=== PATIENT | female | born 1945 ===

== ENCOUNTER 2019-07-29 21:27 | Inpatient (IN) | payer OTHER ==
[2019-07-29] MEDS ORDERED: CEFEPIME 2 GM VIAL ONE (22:42)
[2019-07-29] MEDS ORDERED: ACETAMINOPHEN 650MG/RECT SUPP PR ONE (22:43)
[2019-07-29] MEDS ORDERED: NA CHLORIDE 0.9% 500 ML ONE (22:43)
[2019-07-29] MEDS ORDERED: NA CHLORIDE 0.9% 100 ML IV ONE (22:43)
[2019-07-29] MEDS ORDERED: NA CHLORIDE 0.9% 1,000 ML ONE (22:43)
[2019-07-29 23:13] LABS: Protime INR 1.94
[2019-07-29 23:17] LABS: Absolute Lymphocytes (CBC) 1.6 K/uL (0.7-4.9); Basophils % 0.9 % (0-1.3); Hematocrit 40.7 % (36.0-45.0); Lymphocytes % 13.7 % (15.3-44.8); MPV 9.9 fL (7.6-11.3); RBC Red Blood Cell Count 4.62 M/uL (3.86-4.86)
[2019-07-29 23:40] LABS: Urine Blood 2+ (NEG); Urine Glucose NEGATIVE (NEG); Urine Protein NEGATIVE (NEG); Urine pH 5.5 (5.0-7.0)
[2019-07-29 23:42] LABS: Albumin 3.2 g/dL (3.4-5.0); Bilirubin Direct 0.5 mg/dL (0-0.2); Bilirubin Total 1.3 mg/dL (0.2-1.0); Magnesium 1.7 mg/dL (1.8-2.4); Potassium 3.9 mmol/L (3.5-5.1); Protein, Total 7.9 g/dL (6.4-8.2); Thyroid Stimulating Hormone 0.852 uIU/mL (0.360-3.740); Troponin (Emerg Dept Use Only) 0.07 ng/mL (0.0-0.045)
--- NOTE | 2019-07-29 23:55 | ER ---
Nurse's Notes [facility] Name: Vaishali Leary Age: 73 yrs Sex: Female : 1945 Arrival Date: 07/29/2019 Time: 21:30 Bed 7 Private MD: Diagnosis: Altered mental status, unspecified;Fever, unspecified;Abdominal tenderness;Unspecified kidney failure;Retention of urine-1400cc;Hypomagnesemia Presentation: 07/29 21:31 Presenting complaint: EMS states: "[facility] called us for the pt having trimmers and jd3 altered mental status. she does having a history of dementia and and mood disorder due to history of delirium. she has been there since 07-15-19. the staff says she is normally A\\T\\O X 4 but today she is not making any since and is at A\\T\\O X 0. they reported that she is shouting incoherently and having tremors.". Transition of care: patient was received from another setting of care (long-term care facility), [facility]. Onset of symptoms was July 29, 2019. Risk Assessment: Do you want to hurt yourself or someone else? Patient reports no desire to harm self or others. Initial Sepsis Screen: Does the patient meet any 2 criteria? HR > 90 bpm. No. Patient's initial sepsis screen is negative. Does the patient have a suspected source of infection? No. Patient's initial sepsis screen is negative. Care prior to arrival: None. 21:31 Method Of Arrival: EMS: [facility] jd3 21:31 Acuity: AIRAM 2 jd3 Historical: - Allergies: 21:54 Iodine; jd3 21:54 Sulfa (Sulfonamide Antibiotics); jd3 21:54 Glipizide; jd3 - Home Meds: 21:54 Depakote 250 mg Oral TbEC 1 tab 3 times per day [Active]; lorazepam 1 mg Oral tab twice jd3 a day [Active]; fentanyl 12 mcg/hr Topical pt72 1 patch every 72 hours [Active]; levothyroxine 100 mcg tab 2 tabs once daily [Active]; quetiapine 200 mg oral tab once daily [Active]; atorvastatin 20 mg oral tab 1 tab once daily [Active]; Januvia 50 mg oral tab once daily [Active]; isosorbide dinitrate 30 mg Oral tab 1 tab daily [Active]; digoxin 125 mcg Oral tab 1 tab once daily [Active]; metformin 500 mg Oral tab 1 tab 2 times per day [Active]; Lasix 40 mg Oral tab 1 tab once daily [Active]; gabapentin 100 mg oral cap 1 caps twice a day [Active]; - PMHx: 21:54 Dementia; delirium; Atrial Fib; COPD; Diabetes - NIDDM; Hypothyroidism; Hyperlipidemia; jd3 CHF; - Immunization history:: Adult Immunizations up to date. - Social history:: Smoking status: unknown. - Ebola Screening: : Patient negative for fever greater than or equal to 101.5 degrees Fahrenheit, and additional compatible Ebola Virus Disease symptoms. Screenin:25 Abuse screen: Denies threats or abuse. Nutritional screening: No deficits noted. jd3 Tuberculosis screening: No symptoms or risk factors identified. Fall Risk IV access (20 points). Ambulatory Aid- Crutches/Cane/Walker (15 pts). Gait- Weak (10 pts.). Mental Status- Overestimates/Forgets Limitations (15 pts.). Total Coppola Fall Scale indicates High Risk Score (45 or more points). Fall prevention measures have been instituted. Side Rails Up X 2 Placed Close to Nursing Station Frequent Obs/Assessments Occuring Family Present and informed to notify staff if the need to leave the bedside. Assessment: 21:45 General: Appears in no apparent distress. uncomfortable, Behavior is anxious, jd3 inappropriate for age. Pain: Unable to use pain scale. Patient is disoriented. Does not appear to understand pain scale. FLACC scale score is 7 out of 10. Neuro: Level of Consciousness is awake, confused, Oriented to none. Cardiovascular: Heart tones S1 S2 present Capillary refill < 3 seconds Patient's skin is warm and dry. Rhythm is irregular. Respiratory: Airway is patent Respiratory effort is even, unlabored, Respiratory pattern is regular, symmetrical, Breath sounds are clear bilaterally. Parent/caregiver reports the patient having denies cough. GI: Abdomen is round distended, Bowel sounds present X 4 quads. Abdomen is tender to palpation X 4 quads. Guarding noted X 4 quads. Reports lower abdominal pain, upper abdominal pain. : Parent/caregiver report the patient having history of UTI's. EENT: No signs and/or symptoms were reported regarding the EENT system. Derm: Skin is intact, Skin is dry, Skin is normal, Skin temperature is warm. Musculoskeletal: Circulation, motion, and sensation intact. Range of motion: intact in all extremities. 22:45 Reassessment: Patient appears in no apparent distress at this time. No changes from jd3 previously documented assessment. Patient and/or family updated on plan of care and expected duration. Pain level reassessed. 23:45 Reassessment: Patient appears in no apparent distress at this time. Patient and/or jd3 family updated on plan of care and expected duration. Pain level reassessed. pt appears to be more comfortable. less yelling and less tossing in bed. A\\T\\O X 0. even and unlabored respirations. 07/30 00:53 Reassessment: Patient appears in no apparent distress at this time. Patient and/or jd3 family updated on plan of care and expected duration. Pain level reassessed. pt appears less restless and is not trembling or yelling. A\\T\\O X 0. even and unlabored respirations. IV's in place with medications infusing at prescribed rate. no swelling or redness noted. Vital Signs: 07/29 21:54 BP 142 / 92; Pulse 98; Resp 19 S; Temp 100.7(A); Pulse Ox 95% on R/A; Weight 79.38 kg jd3 (R); Height 5 ft. 5 in. (165.10 cm) (R); Pain 0/10; 23:40 BP 140 / 68; Pulse 94; Resp 19 S; Pulse Ox 98% on R/A; jd3 07/30 00:52 BP 126 / 62; Pulse 100; Resp 18 S; Temp 99.4(A); Pulse Ox 98% on R/A; Pain 0/10; jd3 07/29 21:54 Body Mass Index 29.12 (79.38 kg, 165.10 cm) jd3 ED Course: 07/29 21:30 Patient arrived in ED. jd3 21:31 Thom Peralta RN is Primary Nurse. jd3 21:42 Triage completed. jd3 21:48 Nathaniel Anderson MD is Attending Physician. gabo 21:59 Arm band placed on. jd3 22:20 Inserted saline lock: 20 gauge in right forearm, using aseptic technique. Blood jd3 collected. 22:26 Patient has correct armband on for positive identification. Placed in gown. Bed in low jd3 position. Call light in reach. Side rails up X2. Adult w/ patient. 22:40 XRAY Chest (1 view) In Process Unspecified. EDMS 22:47 CT Head Brain wo Cont In Process Unspecified. EDMS 22:54 CT Stone Protocol In Process Unspecified. EDMS 23:30 Nava cath inserted, using sterile technique, 16 Fr., by ne, balloon inflated, to jd3 gravity drainage, urine specimen collected. returned lara urine. Patient tolerated well. 1400 ml of urine removed. 23:53 Huma Willoughby MD is Hospitalizing Provider. [facility] 07/30 00:22 Inserted saline lock: 20 gauge in right antecubital area, using aseptic technique. jd3 Blood collected. 01:05 No provider procedures requiring assistance completed. Patient admitted, IV remains in jd3 place. Administered Medications: 07/29 23:36 Drug: Cefepime 2 grams Route: IVPB; Rate: 200 ml/hr; Infused Over: 30 mins; Site: right jd3 forearm; 07/30 00:30 Follow up: Response: No adverse reaction; IV Status: Completed infusion; IV Intake: jd3 100ml 07/29 23:36 Drug: Tylenol Suppository 650 mg Route: LA; jd3 07/30 00:30 Follow up: Response: No adverse reaction j 07/29 23:36 Drug: NS 0.9% 500 ml Route: IV; Rate: bolus; Site: right forearm; jd3 07/30 00:30 Follow up: Response: No adverse reaction; IV Status: Completed infusion; IV Intake: jd3 500ml 07/29 23:37 Drug: NS 0.9% 1000 ml Route: IV; Rate: 125 ml/hr; Site: right forearm; jd3 07/30 00:59 Follow up: Response: No adverse reaction; IV Status: Infusion continued upon admission jd3 00:34 Drug: NS 0.9% 1000 ml Route: IV; Rate: 1 bolus; Site: right antecubital; jd3 01:16 Follow up: Response: No adverse reaction; IV Status: Infusion continued upon admission jd3 00:34 Drug: NS 0.9% 1000 ml Route: IV; Rate: 1 bolus; Site: right antecubital; jd3 01:16 Follow up: Response: No adverse reaction; IV Status: Infusion continued upon admission jd3 00:34 Drug: vancoMYCIN 1 grams Route: IVPB; Infused Over: 2 hrs; Site: right forearm; jd3 01:16 Follow up: Response: No adverse reaction; IV Status: Infusion continued upon admission jd3 00:35 Drug: Magnesium Sulfate 1 grams Route: IVPB; Infused Over: 1 hrs; Site: right jd3 antecubital; 01:15 Follow up: Response: No adverse reaction jd3 01:16 Follow up: Response: No adverse reaction; IV Status: Infusion continued upon admission jd3 00:45 Drug: Dulcolax Suppository 10 mg Route: LA; jd3 01:17 Follow up: Response: No adverse reaction jd3 Intake: 00:30 IV: 500ml; Total: 500ml. jd3 00:30 IV: 100ml; Total: 600ml. jd3 Outcome: 07/29 23:54 Decision to Hospitalize by Provider. gabo 07/30 01:15 Admitted to Med/surg accompanied by tech, via stretcher, room 408, with oxygen, with jd3 chart, Report called to Sharon RN Condition: stable Instructed on the need for admit. 01:51 Patient left the ED. jd3 Signatures: Dispatcher [employer] EDNathaniel Masterson MD MD cha Davies, Jonathon, PANDA RN jd3 Corrections: (The following items were deleted from the chart) 07/29 22:25 22:25 Inserted saline lock: 20 gauge in right forearm, using aseptic technique. Blood jd3 collected. jd3
--- NOTE | 2019-07-29 23:55 | EDPHYS ---
Physician Documentation [facility] Name: Vaishali Leary Age: 73 yrs Sex: Female : 1945 Arrival Date: 07/29/2019 Time: 21:30 Bed 7 Private MD: ED Physician Nathaniel Anderson HPI: 07/29 22:23 This 73 yrs old Unknown Female presents to ER via EMS with complaints of fever, abd gabo pain and ams. 22:23 The patient presents with abdominal pain in the upper abdomen, in the lower abdomen, gabo abdominal distention in the upper abdomen, in the lower abdomen. Onset: The symptoms/episode began/occurred 2 day(s) ago. fever, dementia, abd pain. The patient presents with confusion, decreased mental status, trouble concentrating. Onset: The symptoms/episode began/occurred 2 day(s) ago. Possible causes: unknown. Associated signs and symptoms: The patient has no apparent associated signs or symptoms. Associated signs and symptoms: Pertinent positives: dysuria, fever, nausea. Historical: - Allergies: 21:54 Iodine; jd3 21:54 Sulfa (Sulfonamide Antibiotics); jd3 21:54 Glipizide; jd3 - Home Meds: 21:54 Depakote 250 mg Oral TbEC 1 tab 3 times per day [Active]; lorazepam 1 mg Oral tab twice jd3 a day [Active]; fentanyl 12 mcg/hr Topical pt72 1 patch every 72 hours [Active]; levothyroxine 100 mcg tab 2 tabs once daily [Active]; quetiapine 200 mg oral tab once daily [Active]; atorvastatin 20 mg oral tab 1 tab once daily [Active]; Januvia 50 mg oral tab once daily [Active]; isosorbide dinitrate 30 mg Oral tab 1 tab daily [Active]; digoxin 125 mcg Oral tab 1 tab once daily [Active]; metformin 500 mg Oral tab 1 tab 2 times per day [Active]; Lasix 40 mg Oral tab 1 tab once daily [Active]; gabapentin 100 mg oral cap 1 caps twice a day [Active]; - PMHx: 21:54 Dementia; delirium; Atrial Fib; COPD; Diabetes - NIDDM; Hypothyroidism; Hyperlipidemia; jd3 CHF; - Immunization history:: Adult Immunizations up to date. - Social history:: Smoking status: unknown. - Ebola Screening: : Patient negative for fever greater than or equal to 101.5 degrees Fahrenheit, and additional compatible Ebola Virus Disease symptoms. ROS: 22:25 Constitutional: Negative for fever, chills, and weight loss, Eyes: Negative for injury, gabo pain, redness, and discharge, ENT: Negative for injury, pain, and discharge, Neck: Negative for injury, pain, and swelling, Cardiovascular: Negative for chest pain, palpitations, and edema, Respiratory: Negative for shortness of breath, cough, wheezing, and pleuritic chest pain, Abdomen/GI: Negative for abdominal pain, nausea, vomiting, diarrhea, and constipation, Back: Negative for injury and pain, : Negative for injury, bleeding, discharge, and swelling, MS/Extremity: Negative for injury and deformity, Skin: Negative for injury, rash, and discoloration, Allergy/Immunology: Negative for hives, rash, and allergies, Endocrine: Negative for neck swelling, polydipsia, polyuria, polyphagia, and marked weight changes, Hematologic/Lymphatic: Negative for swollen nodes, abnormal bleeding, and unusual bruising. 22:25 Neuro: Positive for altered mental status, tremor, weakness. 22:25 Psych: Positive for anxiety, visual hallucinations. Exam: 22:26 Head/Face: Normocephalic, atraumatic. Eyes: Pupils equal round and reactive to light, gabo extra-ocular motions intact. Lids and lashes normal. Conjunctiva and sclera are non-icteric and not injected. Cornea within normal limits. Periorbital areas with no swelling, redness, or edema. ENT: Nares patent. No nasal discharge, no septal abnormalities noted. Tympanic membranes are normal and external auditory canals are clear. Oropharynx with no redness, swelling, or masses, exudates, or evidence of obstruction, uvula midline. Mucous membranes moist. Neck: Trachea midline, no thyromegaly or masses palpated, and no cervical lymphadenopathy. Supple, full range of motion without nuchal rigidity, or vertebral point tenderness. No Meningismus. Chest/axilla: Normal chest wall appearance and motion. Nontender with no deformity. No lesions are appreciated. Back: No spinal tenderness. No costovertebral tenderness. Full range of motion. Skin: Warm, dry with normal turgor. Normal color with no rashes, no lesions, and no evidence of cellulitis. MS/ Extremity: Pulses equal, no cyanosis. Neurovascular intact. Full, normal range of motion. 22:26 Cardiovascular: Rate: tachycardic, Rhythm: regular, Pulses: Pulses are 4+ in bilateral radial, brachial, femoral, popliteal, posterior tibial and and dorsalis pedis arteries.. Heart sounds: normal, Edema: is not appreciated, JVD: is not appreciated. 22:26 Respiratory: the patient does not display signs of respiratory distress, Respirations: normal, Breath sounds: decreased breath sounds, rhonchi, that are mild, are scattered, Respiratory rate: 18 Vital Signs: 21:54 BP 142 / 92; Pulse 98; Resp 19 S; Temp 100.7(A); Pulse Ox 95% on R/A; Weight 79.38 kg [facility] (R); Height 5 ft. 5 in. (165.10 cm) (R); Pain 0/10; 23:40 BP 140 / 68; Pulse 94; Resp 19 S; Pulse Ox 98% on R/A; [facility] 07/30 00:52 BP 126 / 62; Pulse 100; Resp 18 S; Temp 99.4(A); Pulse Ox 98% on R/A; Pain 0/10; [facility] 07/29 21:54 Body Mass Index 29.12 (79.38 kg, 165.10 cm) [facility] MDM: 07/29 21:48 Patient medically screened. [facility] 22:26 Data reviewed: vital signs, nurses notes, lab test result(s), EKG, radiologic studies, gabo doppler, plain films. 07/29 21:55 Order name: Basic Metabolic Panel; Complete Time: 23:49 [facility] 07/29 21:55 Order name: CBC with Diff; Complete Time: 23:49 [facility] 07/29 21:55 Order name: LFT's; Complete Time: 23:49 [facility] 07/29 21:55 Order name: Magnesium; Complete Time: 23:49 [facility] 07/29 21:55 Order name: NT PRO-BNP; Complete Time: 23:49 [facility] 07/29 21:55 Order name: PT-INR; Complete Time: 23:49 [facility] 07/29 21:55 Order name: Troponin (emerg Dept Use Only); Complete Time: 23:49 [facility] 07/29 21:55 Order name: Blood Culture Adult (2) [facility] 07/29 21:55 Order name: Urine Culture [facility] 07/29 21:55 Order name: Lipase; Complete Time: 23:49 [facility] 07/29 21:55 Order name: Lactate; Complete Time: 23:52 [facility] 07/29 21:56 Order name: Depakote; Complete Time: 23:49 [facility] 07/29 21:56 Order name: Digoxin; Complete Time: 23:49 [facility] 07/29 21:56 Order name: TSH; Complete Time: 23:49 [facility] 07/29 21:55 Order name: XRAY Chest (1 view) [facility] 07/29 21:55 Order name: CT Head Brain wo Cont [facility] 07/29 22:21 Order name: CT Stone Protocol [facility] 07/29 23:33 Order name: Urine Dipstick--Ancillary (enter results); Complete Time: 23:49 [facility] 07/29 23:48 Order name: AMMONIA [facility] 07/30 00:34 Order name: CBC with Automated Diff EDMS 07/30 00:34 Order name: CBC with Automated Diff EDMS 07/30 00:34 Order name: Comprehensive Metabolic Panel [facility] 07/30 00:34 Order name: Comprehensive Metabolic Panel [facility] 07/29 21:55 Order name: EKG; Complete Time: 21:56 [facility] 07/29 21:55 Order name: Cardiac monitoring; Complete Time: 22:24 [facility] 07/29 21:55 Order name: EKG - Nurse/Tech; Complete Time: 22:24 [facility] 07/29 21:55 Order name: IV Saline Lock; Complete Time: 22:24 [facility] 07/29 21:55 Order name: Labs collected and sent; Complete Time: 22:24 [facility] 07/29 21:55 Order name: O2 Per Protocol; Complete Time: 22:24 [facility] 07/29 21:55 Order name: O2 Sat Monitoring; Complete Time: 22:24 [facility] 07/29 21:55 Order name: Urine Dipstick-Ancillary (obtain specimen); Complete Time: 23:37 [facility] 07/29 22:03 Order name: Nava; Complete Time: 23:37 [facility] 07/30 00:17 Order name: EKG; Complete Time: 00:18 [facility] 07/30 00:17 Order name: EKG - Nurse/Tech; Complete Time: 01:00 [facility] 07/30 00:34 Order name: CONS Pharmacy Consult EDMS 07/30 00:34 Order name: Regular EDMS Administered Medications: 23:36 Drug: Cefepime 2 grams Route: IVPB; Rate: 200 ml/hr; Infused Over: 30 mins; Site: right jd3 forearm; 07/30 00:30 Follow up: Response: No adverse reaction; IV Status: Completed infusion; IV Intake: jd3 100ml 07/29 23:36 Drug: Tylenol Suppository 650 mg Route: [place]; jd3 07/30 00:30 Follow up: Response: No adverse reaction jd3 07/29 23:36 Drug: NS 0.9% 500 ml Route: IV; Rate: bolus; Site: right forearm; jd3 07/30 00:30 Follow up: Response: No adverse reaction; IV Status: Completed infusion; IV Intake: jd3 500ml 07/29 23:37 Drug: NS 0.9% 1000 ml Route: IV; Rate: 125 ml/hr; Site: right forearm; jd3 07/30 00:59 Follow up: Response: No adverse reaction; IV Status: Infusion continued upon admission jd3 00:34 Drug: NS 0.9% 1000 ml Route: IV; Rate: 1 bolus; Site: right antecubital; jd3 01:16 Follow up: Response: No adverse reaction; IV Status: Infusion continued upon admission jd3 00:34 Drug: NS 0.9% 1000 ml Route: IV; Rate: 1 bolus; Site: right antecubital; jd3 01:16 Follow up: Response: No adverse reaction; IV Status: Infusion continued upon admission jd3 00:34 Drug: vancoMYCIN 1 grams Route: IVPB; Infused Over: 2 hrs; Site: right forearm; jd3 01:16 Follow up: Response: No adverse reaction; IV Status: Infusion continued upon admission jd3 00:35 Drug: Magnesium Sulfate 1 grams Route: IVPB; Infused Over: 1 hrs; Site: right jd3 antecubital; 01:15 Follow up: Response: No adverse reaction jd3 01:16 Follow up: Response: No adverse reaction; IV Status: Infusion continued upon admission jd3 00:45 Drug: Dulcolax Suppository 10 mg Route: W[place]; jd3 01:17 Follow up: Response: No adverse reaction jd3 Disposition: 07/29/19 23:54 Hospitalization ordered by Huma Willoughby for Inpatient Admission. Preliminary diagnosis are Altered mental status, unspecified, Fever, unspecified, Abdominal tenderness, Unspecified kidney failure, Retention of urine - 1400cc, Hypomagnesemia. - Bed requested for Telemetry/MedSurg (Inpatient). - Status is Inpatient Admission. jd3 - Condition is Fair. - Problem is new. - Symptoms have improved. UTI on Admission? Yes Signatures: Dispatcher [employer] EDMS Tatyana Chacon RN RN mw Anderson, Corey, MD MD cha Davies, Jonathon, RN RN jd3 Corrections: (The following items were deleted from the chart) 00:17 07/29 23:54 Hospitalization Ordered by Huma Willoughby MD for Inpatient Admission. [facility] Preliminary diagnosis is Altered mental status, unspecified; Fever, unspecified; Abdominal tenderness; Unspecified kidney failure; Retention of urine - 1400cc. Bed requested for Telemetry/MedSurg (Inpatient). Status is Inpatient Admission. Condition is Fair. Problem is new. Symptoms have improved. UTI on Admission? Yes. gabo 07/30 00:17 00:17 07/29/2019 23:54 Hospitalization Ordered by Huma Willoughby MD for Inpatient mw Admission. Preliminary diagnosis is Altered mental status, unspecified; Fever, unspecified; Abdominal tenderness; Unspecified kidney failure; Retention of urine - 1400cc; Hypomagnesemia. Bed requested for Telemetry/MedSurg (Inpatient). Status is Inpatient Admission. Condition is Fair. Problem is new. Symptoms have improved. UTI on Admission? Yes. gabo 00:21 00:17 07/29/2019 23:54 Hospitalization Ordered by Huma Willoughby MD for Inpatient mw Admission. Preliminary diagnosis is Altered mental status, unspecified; Fever, unspecified; Abdominal tenderness; Unspecified kidney failure; Retention of urine - 1400cc. Bed requested for Telemetry/MedSurg (Inpatient). Status is Inpatient Admission. Condition is Fair. Problem is new. Symptoms have improved. UTI on Admission? Yes. gregorio 01:51 00:21 07/29/2019 23:54 Hospitalization Ordered by Huma Willoughby MD for Inpatient jd3 Admission. Preliminary diagnosis is Altered mental status, unspecified; Fever, unspecified; Abdominal tenderness; Unspecified kidney failure; Retention of urine - 1400cc; Hypomagnesemia. Bed requested for Telemetry/MedSurg (Inpatient). Status is Inpatient Admission. Condition is Fair. Problem is new. Symptoms have improved. UTI on Admission? Yes. gregorio
[2019-07-30] MEDS ORDERED: NA CHLORIDE 0.9% 2,000 ML ONE (00:03)
[2019-07-30] MEDS ORDERED: MAGNESIUM SULFATE 1 gm IVPB 1 GM/100 ML BAG IV ONE (00:03)
[2019-07-30] MEDS ORDERED: NA CHLORIDE 0.9% 250 ML ONE (00:03)
[2019-07-30] MEDS ORDERED: VANCOMYCIN 1 GM/VIAL ONE (00:03)
[2019-07-30] MEDS ORDERED: BISACODYL 10 MG RECTAL SUPP ONE (00:03)
[2019-07-30] MEDS ORDERED: ACETAMINOPHEN 500 MG TAB PO PRN (00:29)
[2019-07-30] MEDS ORDERED: ONDANSETRON 4 MG/2 ML VIAL IV PRN (00:29)
[2019-07-30] MEDS: NA CHLORIDE 0.9% 1,000 ML IV SCH ×4 (01:00→22:32)
[2019-07-30 03:24] VITALS: BMI 28.3
[2019-07-30] MEDS ORDERED: BISACODYL 10 MG RECTAL SUPP PR ONE (06:33)
[2019-07-30 07:13] LABS: Urine Appearance CLOUDY; Urine Bilirubin NEGATIVE (NEG); Urine Blood 3+ (NEG); Urine Color YELLOW; Urine Glucose NEGATIVE (NEG); Urine Protein 1+ (NEG); Urine Urobilinogen 0.2 mg/dL (0.2-1.0); Urine pH 5.5 (5.0-7.0)
[2019-07-30 08:00] LABS: Urine RBC 20-50 /HPF (NONE SEEN)
[2019-07-30 08:01] LABS: Urine Bacteria <20 /HPF (<20); Urine Culture Reflex Order REFLEXED; Urine Yeast PRESENT (NONE SEEN)
[2019-07-30] MEDS: CEFTRIAXONE/SWI 1gm 1 GM/10 ML SYR IVP SCH (08:07)
[2019-07-30] MEDS ORDERED: ACETAMINOPHEN 325 MG TABLET PO PRN (08:17)
--- NOTE | 2019-07-30 08:21 | P.HP ---
Certification for Inpatient Patient admitted to: Inpatient With expected LOS: >2 Midnights Patient will require the following post-hospital care: Usp Practitioner: I am a practitioner with admitting privileges, knowledge of patient current condition, hospital course, and medical plan of care. Services: Services provided to patient in accordance with Admission requirements found in Title 42 Section 412.3 of the Code of Federal Regulations Patient History Date of Service: 07/30/19 Reason for admission: Altered mental status History of Present Illness: Patient is a 73-year-old female who presents to the emergency room with altered mentation. Patient was recently had a geriatric psychiatric facility. Patient normally walks with a walker or wheelchair. She had been walking at the [facility] with a wheelchair. She was treated for her behavioral disturbances and discharged on Seroquel to [facility] for nursing home treatment. Patient normally can engage in conversation without much difficulty. Patient had been doing well according to the [facility] staff until 2 days ago when patient became confused. Patient became more lethargic over the last 48 hr and was sent to our facility. In the emergency room, initial workup revealed dehydration. CT of the head was negative. CT for stone protocol was also negative. Patient did have significant bladder retention and on placement of Nava catheter 1400 cc of urine output was obtained. Patient also looks to be impacted. According to patient's daughter in-law who works at the hospital as a RN in information technology(IT), patient goes between constipation and diarrhea. Patient was in [place] under hospice care for COPD and vascular disease. When patient moved here to be with family this was discontinued. Patient was at the [facility] for about 3 weeks. She was sent to [facility] about a week ago. At this time, patient is a do not attempt resuscitation. We will discuss with family regarding further care once all studies are obtained. On reviewing bailer operators supervisor film of CT for stone protocol there is concern for a impacted right hip fracture. Patient does have sciatica and chronic pain in the right leg. But she does not have a history of a hip fracture. She does have pain in the right leg. At the psychiatric facility she was walking with a wheelchair. Allergies glipizide Allergy (Verified 07/30/19 02:23) Itching iodine Allergy (Verified 07/30/19 02:23) Itching Sulfa (Sulfonamide Antibiotics) Allergy (Verified 07/30/19 02:23) Itching Home Medications: Acetaminophen [Tylenol] 650 mg PO Q6HP PRN 07/30/19 Apixaban [Eliquis] 5 mg PO BID 07/30/19 Atorvastatin Calcium [Lipitor] 20 mg PO BEDTIME 07/30/19 Digoxin [Lanoxin] 125 mcg PO DAILY 07/30/19 Divalproex ER [Depakote *ER*] 250 mg PO TID 07/30/19 Duloxetine HCl [Cymbalta] 60 mg PO DAILY 07/30/19 Furosemide [Lasix] 40 mg PO DAILY 07/30/19 Gabapentin [Neurontin] 100 mg PO BID 07/30/19 Isosorbide Dinitrate 30 mg PO DAILY 07/30/19 LORazepam [Ativan] 1 mg PO BID 07/30/19 Levothyroxine Sodium 200 mcg PO DAILY 07/30/19 Lidocaine [Lidocaine Pain Relief] 1 each TP BEDTIME 07/30/19 Metformin HCl [Glucophage] 500 mg PO BIDWM 07/30/19 Nicotine [Nicoderm] 1 patch TD DAILY 07/30/19 Nystatin Cream [Mycostatin 100MU/Gm Cream] 1 appl TOP BID 07/30/19 Quetiapine [Seroquel] 200 mg PO BEDTIME 07/30/19 Sitagliptin Phosphate [Januvia] 50 mg PO DAILY 07/30/19 fentaNYL [Fentanyl] 1 each TD SEECOM 07/30/19 - Past Medical/Surgical History Past Medical History: Unable to obtain -: Depression -: Psychosis -: Atrial fibrillation -: Hypertension -: COPD -: Abdominal aneurysm -: Diabetes type 2 -: CHF -: Dyslipidemia Past Surgical History: Unable to obtain - Family History Father Family History: Reviewed- Non-Contributory - Social History Smoking Status: Unknown if ever smoked Alcohol use: No CD- Drugs: No Place of Residence: [facility] Review of Systems is unable to be obtained Physical Examination - Vital Signs Temperature: 99.4 F Blood Pressure: 126/62 Pulse: 100 Respirations: 18 Pulse Ox (%): 98 - Physical Exam General: Other (Following some commands but she is lethargic especially compared to her baseline) HEENT: Atraumatic, PERRLA, Mucous membr. moist/pink, EOMI, Sclerae nonicteric Neck: Supple, 2+ carotid pulse no bruit, No LAD, Without JVD or thyroid abnormality Respiratory: Diminished Cardiovascular: Regular rate/rhythm, Normal S1 S2, Systolic murmur Gastrointestinal: Normal bowel sounds, Soft and benign, Non-distended, No tenderness Musculoskeletal: No clubbing, No swelling, Tenderness (Right lower extremity) Integumentary: No rashes Neurological: Abnormal gait, Abnormal speech, Abnormal strength, Abnormal tone, Dementia Lymphatics: No axilla or inguinal lymphadenopathy Urinary: Nava catheter - Studies Laboratory Data (last 24 hrs) 07/29/19 22:59: PT 22.3 H, INR 1.94 07/29/19 22:59: WBC 11.4 H D, Hgb 13.7, Hct 40.7, Plt Count 297 D 07/29/19 22:59: Sodium 144, Potassium 3.9, BUN 32 H, Creatinine 1.67 H, Glucose 193 H, Magnesium 1.7 L, Total Bilirubin 1.3 H, AST 21, ALT 15, Alkaline Phosphatase 85, Lipase 48 L Assessment & Plan - Problems (Diagnosis) (1) Altered mental status Current Visit: Yes Status: Acute Qualifiers: Altered mental status type: somnolence Qualified Code(s): R40.0 - Somnolence (2) Acute kidney injury Current Visit: Yes Status: Acute (3) Dysuria Current Visit: Yes Status: Acute (4) Bladder retention Current Visit: Yes Status: Acute (5) Constipation Current Visit: Yes Status: Acute (6) Impaction of colon Current Visit: Yes Status: Acute (7) Dementia with behavioral problem Current Visit: No Status: Chronic Qualifiers: Dementia type: Alzheimer's disease Alzheimer's disease onset: late-onset Qualified Code(s): G30.1 - Alzheimer's disease with late onset; F02.81 - Dementia in other diseases classified elsewhere with behavioral disturbance (8) Atrial fibrillation Current Visit: No Status: Chronic (9) COPD (chronic obstructive pulmonary disease) Current Visit: No Status: Chronic (10) CHF (congestive heart failure) Current Visit: No Status: Chronic (11) Right leg pain Current Visit: Yes Status: Acute (12) DM2 (diabetes mellitus, type 2) Current Visit: No Status: Chronic Qualifiers: 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 IV hydration 2. Right hip x-ray 3. Nava catheter to gravity 4. Discontinue fentanyl patch 5. Resume home medications-cardiac meds and dementia med 6. Monitor renal function 7. Neurochecks 8. Strict blood pressure and blood sugar control 9. Hold anti coagulation 10. Await urine with microscopy 11. GI and DVT prophylaxis Discharge Plan: Home Plan to discharge in: Greater than 2 days - Advance Directives Does patient have a Living Will: Yes Does patient have a Durable POA for Healthcare: Yes Comments: [facility]a [place] - Code Status/Comfort Care Code Status Assessed: Yes Code Status: Do Not Attempt Resuscitat Critical Care: No Time Spent Managing PTS Care (In Minutes): 50
[2019-07-30] MEDS ORDERED: FUROSEMIDE 40 MG TABLET PO SCH (09:00)
[2019-07-30] MEDS ORDERED: HOME MED 1 EA UNK (Duloxetine Hcl [Cymbalta] 60 MG) PO SCH (09:00)
[2019-07-30] MEDS ORDERED: CEFTRIAXONE 1 GM/NS 50 ML 1 GM/50 ML BAG IV SCH (09:00)
[2019-07-30] MEDS ORDERED: HOME MED 1 EA UNK (Isosorbide Dinitrate [Isosorbide Dinitrate] 30 MG) PO SCH (09:00)
[2019-07-30] MEDS ORDERED: GABAPENTIN 100 MG CAP PO SCH (09:00)
[2019-07-30] MEDS: DIGOXIN 0.125 MG TABLET PO SCH (09:48)
[2019-07-30] MEDS: SITAGLIPTIN PHOS 100 MG TAB PO SCH (09:48)
[2019-07-30] MEDS: DIVALPROEX ER 250 MG TAB PO SCH ×3 (09:51→20:13)
--- NOTE | 2019-07-30 09:51 | P.PN ---
Subjective Date of Service: 07/30/19 (Hospitalist) Chief Complaint: Altered mental status No change patient is still altered little agitated alert but not cooperative no meaningful answers her reply is Review of Systems is unable to be obtained Physical Examination - Vital Signs Temperature: 99.4 F Blood Pressure: 126/62 Pulse: 100 Respirations: 18 Pulse Ox (%): 98 - Physical Exam General: Alert, In no apparent distress, Delirious Neck: Supple Respiratory: Clear to auscultation bilaterally Cardiovascular: No edema, Regular rate/rhythm Gastrointestinal: Normal bowel sounds, Soft and benign - Studies Laboratory Data (last 24 hrs) 07/29/19 22:59: PT 22.3 H, INR 1.94 07/29/19 22:59: WBC 11.4 H D, Hgb 13.7, Hct 40.7, Plt Count 297 D 07/29/19 22:59: Sodium 144, Potassium 3.9, BUN 32 H, Creatinine 1.67 H, Glucose 193 H, Magnesium 1.7 L, Total Bilirubin 1.3 H, AST 21, ALT 15, Alkaline Phosphatase 85, Lipase 48 L Assessment & Plan - Problems (Diagnosis) (1) Altered mental status Current Visit: Yes Status: Acute Plan: Patient is 73 years of age admitted with altered mental status from a snf labs reviewed BNP elevated no evidence of urinary tract infection cultures are pending vital signs stable at thymine chest x-rays rotated status post CABG CT reports of other organs are pending DHE level is 1.0 renal function is abnormal possible underlying chronic renal failure Dc Lasix for now continue to monitor patient apparently has a history of COPD active smoker ABGs ordered Qualifiers: Altered mental status type: somnolence Qualified Code(s): R40.0 - Somnolence
[2019-07-30] MEDS: NYSTATIN 100MU/GM CREAM 15GM TOP SCH ×2 (10:14→20:14)
[2019-07-30] MEDS: NICOTINE 21 MG/PAT TD SCH (10:14)
--- NOTE | 2019-07-30 10:18 | RAD REPORT ---
EXAM DESCRIPTION: Merry Single View07/29/2019 10:42 pm CLINICAL HISTORY: cough COMPARISON: None FINDINGS: Mild left basilar opacity. The right lung is clear. The heart is mildly enlarged. Postsurgical changes involve the chest. IMPRESSION: Mild left basilar opacity may represent atelectasis or pneumonia
[2019-07-30] MEDS: ISOSORBIDE DINIT 20 MG TAB PO SCH ×3 (10:19→20:13)
[2019-07-30] MEDS: THIAMINE 200 MG/2 ML INJ IVP SCH (10:20)
[2019-07-30 10:43] LABS: Arterial Blood Carboxyhemoglob 1.3 % (0-1.5); Blood Gas Oxyhemoglobin 93.7 % (94-97); Blood O2 Saturation 95.6 % (92-98.5)
--- NOTE | 2019-07-30 12:29 | EKG ---
Test Date: 2019-07-30 Test Time: 00:57:39 Wool Washing Machine Operator: NADEGE MEASUREMENT RESULTS: Intervals: Rate: 80 GA: QRSD: 88 QT: 294 QTc: 339 [place]: P: GA: QRS: 172 T: -28 INTERPRETIVE STATEMENTS: Suspect arm lead reversal, interpretation assumes no reversal Atrial fibrillation Low voltage QRS Lateral infarct, age undetermined Abnormal ECG Compared to ECG 07/29/2019 22:09:40 Low QRS voltage now present Accelerated junctional rhythm no longer present Ventricular premature complex(es) no longer present ST (T wave) deviation no longer present Myocardial infarct finding still present Electronically Signed On 07-30-19 12:28:15 CDT by David Sy
--- NOTE | 2019-07-30 12:29 | EKG ---
Test Date: 2019-07-29 Test Time: 22:09:40 Certified Physician'S Assistant: NADEGE MEASUREMENT RESULTS: Intervals: Rate: 101 IN: QRSD: 80 QT: 374 QTc: 484 [place]: P: IN: QRS: 11 T: 170 INTERPRETIVE STATEMENTS: afib Cannot rule out Anterior infarct, age undetermined Marked ST abnormality, possible lateral subendocardial injury Abnormal ECG No previous ECG available for comparison Electronically Signed On 07-30-19 12:28:52 CDT by David Sy
--- NOTE | 2019-07-30 13:41 | RAD REPORT ---
EXAM DESCRIPTION: RAD - Hip Right 2 View - 07/30/2019 1:00 pm CLINICAL HISTORY: Right hip pain FINDINGS: No fracture or dislocation is seen.
[2019-07-30] MEDS: MORPHINE 2 MG/ML SYR IV PRN ×2 (15:53→22:27)
[2019-07-30] MEDS ORDERED: HALOPERIDOL LACT 5 MG/ML INJ IV ONE (19:02)
[2019-07-30] MEDS: ATORVASTATIN 20 MG TAB PO SCH (20:14)
[2019-07-31] MEDS: LEVOTHYROXINE SOD 0.1 MG TAB PO SCH (05:53)
[2019-07-31 06:05] LABS: Absolute Lymphocytes (CBC) 0.9 K/uL (0.7-4.9); Basophils % 0.6 % (0-1.3); Hematocrit 34.8 % (36.0-45.0); MPV 9.6 fL (7.6-11.3); RBC Red Blood Cell Count 3.95 M/uL (3.86-4.86)
[2019-07-31 06:29] LABS: Albumin 2.5 g/dL (3.4-5.0); Bilirubin Total 0.8 mg/dL (0.2-1.0); Potassium 3.1 mmol/L (3.5-5.1)
[2019-07-31] MEDS: CEFTRIAXONE/SWI 1gm 1 GM/10 ML SYR IVP SCH (08:42)
[2019-07-31] MEDS: DULOXETINE 30 MG CAP PO SCH (08:42)
[2019-07-31] MEDS: ISOSORBIDE DINIT 20 MG TAB PO SCH ×3 (08:43→20:14)
[2019-07-31] MEDS: SITAGLIPTIN PHOS 100 MG TAB PO SCH (08:43)
[2019-07-31] MEDS: DIVALPROEX ER 250 MG TAB PO SCH ×3 (08:43→20:16)
[2019-07-31] MEDS: DIGOXIN 0.125 MG TABLET PO SCH (08:44)
[2019-07-31] MEDS: THIAMINE 200 MG/2 ML INJ IVP SCH (08:44)
[2019-07-31] MEDS: NICOTINE 21 MG/PAT TD SCH (08:44)
[2019-07-31] MEDS: NYSTATIN 100MU/GM CREAM 15GM TOP SCH ×2 (08:45→20:16)
--- NOTE | 2019-07-31 10:22 | P.PN ---
Subjective Date of Service: 07/31/19 Chief Complaint: Altered mental status Patient is disoriented agitated Review of Systems is unable to be obtained Physical Examination - Vital Signs Temperature: 97.5 F Blood Pressure: 162/86 Pulse: 76 Respirations: 20 Pulse Ox (%): 96 - Physical Exam General: Alert, In no apparent distress, Confused Respiratory: Clear to auscultation bilaterally Cardiovascular: No edema, Regular rate/rhythm Gastrointestinal: Normal bowel sounds, Soft and benign Assessment & Plan - Problems (Diagnosis) (1) Altered mental status Current Visit: Yes Status: Acute Plan: Patient has altered mental status. I suspect is due to underlying dementia CT scan of the abdomen showed large amount of stool diverticulosis at that take cirrhosis and abdominal aneurysm distended bladder CT scan of the head no acute changes patient is hypernatremic start IV fluids repeat chest x-ray no evidence of sepsis Dc Rocephin as no acute changes plan [facility] or or discharge home hospitalist to discuss with the family members tomorrow Qualifiers: Altered mental status type: somnolence Qualified Code(s): R40.0 - Somnolence
[2019-07-31] MEDS: NACHLORIDE 0.45% 1,000 ML IV SCH ×3 (10:41→23:35)
[2019-07-31] MEDS: IPRATROPIUM BROM 0.5MG/2.5ML NEB SCH ×3 (10:48→19:35)
[2019-07-31] MEDS ORDERED: HALOPERIDOL LACT 5 MG/ML INJ IV ONE (11:00)
--- NOTE | 2019-07-31 11:54 | RAD REPORT ---
EXAM DESCRIPTION: RAD - Chest Single View - 07/31/2019 11:33 am CLINICAL HISTORY: Delirium Chest pain. COMPARISON: Chest Single View dated 07/29/2019 FINDINGS: Portable technique limits examination quality. Mild interstitial pulmonary edema seen. Small left pleural effusion. The heart is moderately enlarged in size. Sternotomy wires present. IMPRESSION: Mild CHF.
[2019-07-31] MEDS ORDERED: ZIPRASIDONE MESYLA 20 MG/VIAL IM PRN (13:57)
[2019-07-31] MEDS: MORPHINE 2 MG/ML SYR IV PRN (16:51)
[2019-07-31] MEDS: HALOPERIDOL LACT 5 MG/ML INJ IV PRN (16:52)
[2019-07-31] MEDS: ATORVASTATIN 20 MG TAB PO SCH (20:16)
[2019-07-31] MEDS: WATER FOR INJ,STERILE 10 ML IM PRN (21:05)
[2019-08-01] MEDS: HALOPERIDOL LACT 5 MG/ML INJ IV PRN ×2 (00:36→08:20)
[2019-08-01] MEDS: IPRATROPIUM BROM 0.5MG/2.5ML NEB SCH ×2 (01:30→07:35)
[2019-08-01] MEDS: LEVOTHYROXINE SOD 0.1 MG TAB PO SCH (05:28)
[2019-08-01 06:07] LABS: Absolute Lymphocytes (CBC) 0.9 K/uL (0.7-4.9); Basophils % 0.8 % (0-1.3); Hematocrit 32.4 % (36.0-45.0); Lymphocytes % 12.8 % (15.3-44.8); RBC Red Blood Cell Count 3.66 M/uL (3.86-4.86)
[2019-08-01 06:27] LABS: Potassium 3.2 mmol/L (3.5-5.1)
[2019-08-01] MEDS ORDERED: MAGNESIUM SULFATE 1 gm IVPB 1 GM/100 ML BAG IV ONE (06:38)
[2019-08-01] MEDS: DULOXETINE 30 MG CAP PO SCH (08:19)
[2019-08-01] MEDS: WATER FOR INJ,STERILE 10 ML IM PRN (08:19)
[2019-08-01] MEDS: SITAGLIPTIN PHOS 100 MG TAB PO SCH (08:20)
--- NOTE | 2019-08-01 08:20 | RAD REPORT ---
EXAM DESCRIPTION: RAD - Chest Single View - 08/01/2019 6:54 am CLINICAL HISTORY: Delirium Chest pain. COMPARISON: Chest Single View dated 07/31/2019; Chest Single View dated 07/29/2019 FINDINGS: Portable technique limits examination quality. Mild interstitial pulmonary edema. The heart is moderately enlarged in size. Sternotomy wires are pre sent. IMPRESSION: Mild CHF.
[2019-08-01] MEDS: DIVALPROEX ER 250 MG TAB PO SCH ×3 (08:21→20:57)
[2019-08-01] MEDS: ISOSORBIDE DINIT 20 MG TAB PO SCH ×3 (08:21→20:58)
[2019-08-01] MEDS: DIGOXIN 0.125 MG TABLET PO SCH (08:21)
[2019-08-01] MEDS: NICOTINE 21 MG/PAT TD SCH (08:21)
[2019-08-01] MEDS: FLUCONAZOLE 100 MG TAB PO SCH (08:21)
[2019-08-01] MEDS: THIAMINE 200 MG/2 ML INJ IVP SCH (08:21)
[2019-08-01] MEDS ORDERED: POTASSIUM 25 MEQ EFFERV TAB PO ONE (09:00)
[2019-08-01] MEDS ORDERED: LORAZEPAM 1 MG TABLET PO PRN (09:51)
--- NOTE | 2019-08-01 10:03 | P.PN ---
Subjective Date of Service: 08/01/19 Primary Care Provider: prison Chief Complaint: Altered mental status Subjective: Other (Patient stable today. Patient alert not that agitated.) Physical Examination - Vital Signs Temperature: 97.3 F Blood Pressure: 180/81 Pulse: 89 Respirations: 24 Pulse Ox (%): 95 - Physical Exam General: Alert, In no apparent distress, Demented HEENT: Atraumatic Neck: Supple Respiratory: Clear to auscultation bilaterally, Normal air movement Cardiovascular: Irregular heart rate/rhythm (AFib rate around 80) Gastrointestinal: Normal bowel sounds, Soft and benign, Non-distended, No tenderness, No masses, No rebound, No guarding Musculoskeletal: No erythema, No tenderness, No warmth Integumentary: No tenderness/swelling, No erythema, No warmth, No cyanosis Neurological: Normal speech, Normal strength at 5/5 x4 extr, Normal tone, Normal affect - Studies Microbiology Data (last 24 hrs): 07/29/19 23:28 Clean Catch Urine [place] Count - Final 07/29/19 23:28 Clean Catch Urine - Final No growth. Medications List Reviewed: Yes Assessment & Plan Discharge Plan: [facility] Plan to discharge in: 24 Hours Physician Review Additional Text: Impression: Acute encephalopathy likely related to dementia with behavioral disturbance Acute renal injury likely dehydration Chronic atrial fibrillation on chronic anti coagulation therapy Hypertension Diabetes mellitus type 2 non insulin dependent Hypothyroidism Anemia likely of chronic disease Depression with anxiety COPD Hyperlipidemia Plan: Acute encephalopathy likely related to dementia with behavioral disturbance: Medications reviewed. Continue with prior psychiatric medication. Patient recently at [employer]. Patient not as agitated as yesterday. Will provide medication for agitation. Will need to discuss with family about long-term care. Patient will need to return to alf with memory unit. Will evaluate ambulation. Continue monitor the patient closely. Anticipate discharge within the next 24 hr. I will turn the service over to Dr. Nieves tomorrow. I will go over the plan of care with her. Acute renal injury likely dehydration: Renal function back to baseline. Discontinue IV fluids. Monitor oral intake. Will ambulate with physical therapy. Will discontinue Nava catheter if ambulating well. Chronic atrial fibrillation on chronic anti coagulation therapy: Medication reviewed. Will restart Eliquis. Will need to discuss with family about the possibility of discontinuing Eliquis at discharge as she is high risk for bleeding. Will add metoprolol for better rate control plus blood pressure slightly elevated. Hypertension: Start metoprolol for better blood pressure control. Will continue to adjust. Diabetes mellitus type 2 non insulin dependent: Patient has been restarted on her medication. Will monitor closely. Hypothyroidism: Continue with medication. Anemia likely of chronic disease: Will monitor closely. Will check B12 and iron studies. Depression with anxiety: Continue with medication. COPD: Will need to verify home medication. Will need to verify if patient has been on chronic oxygen. Hyperlipidemia: Continue with medication Time Spent Managing Pts Care (In Minutes): 55
[2019-08-01 11:08] LABS: Ferritin 175.9 ng/mL (8-388)
--- NOTE | 2019-08-01 12:44 | RAD REPORT ---
EXAM DESCRIPTION: CT - Head Brain Wo Cont - 07/30/2019 7:15 am Head Brain Wo Cont CLINICAL HISTORY: 73 years Female, Declining state; Confused TECHNIQUE: 5 mm axial images were obtained along with 3 mm reformatted coronal and sagittal images. This exam was performed according to our departmental dose-optimization program, which includes autom ated exposure control, adjustment of the mA and/or kV according to patient size and/or use of iterati ve reconstruction technique. COMPARISON: None. FINDINGS: No acute abnormal extracerebral fluid collections are demonstrated. There is moderately severe encephalomalacia within the right parietal temporal lobe suggesting previo us infarction. The cortical sulci, ventricles, and cisterns are within normal limits. There is mild chronic bilateral periventricular microangiopathic white matter changes. There is atherosclerosis of the internal carotid arteries. There are no areas of altered attenuation identified to suggest acute hemorrhage, infarction, or mass lesion. The visualized portions of the paranasal sinuses and mastoid air cells are clear. IMPRESSION: 1. No acute intracranial abnormality. 2. Moderately severe encephalomalacia within the right parietal temporal lobe. Electronically signed by: Christopher De La Cruz MD 07/29/2019 10:53 PM CDT Due to temporary technical issues with the PACS/Fluency reporting system, reports are being signed by the in house radiologist as a courtesy to ensure prompt reporting. The interpreting radiologist is f ully responsible for the content of the report.
--- NOTE | 2019-08-01 12:47 | RAD REPORT ---
EXAM DESCRIPTION: CT - Stone Protocol - 07/30/2019 7:13 am CLINICAL HISTORY: Abdominal pain and distention. Assess for obstructive uropathy. TECHNIQUE: CT scan of the abdomen and pelvis was performed without intravenous contrast. Stone protocol was utilized. 3.0 mm axial images were obtained along with coronal and sagittal reform atted images. DOSE OPTIMIZATION: This facility uses dose optimization techniques as appropriate to perform exams, including at least one of the following techniques: 1. Automated exposure control. 2. Adjustment of the mA and/or kV according to patient size (this includes techniques or standardized protocols for targeted exams where dose is matched to the indication/reason for exam, i.e. extremiti es or head). 3. Use of iterative reconstructive technique. COMPARISON: None. FINDINGS: Lung Bases: There are no active infiltrates. There is evidence of coronary arterial disease. Liver: There is evidence of hepatic cirrhosis. Spleen: Normal. Pancreas: Normal. Gallbladder: Normal. Adrenal Glands: There is a left adrenal mass which measures 3.4 x 1.9 cm. This has a density of -14 Hounsfield units most likely represents an adenoma. Right Kidney: There is a small exophytic mass extending laterally from right kidney measuring 1.0 cm maximal diameter. Further evaluation with a nonemergent ultrasound recommended. Left Kidney: Normal. Right Ureter: Normal. Left Ureter: Normal. Urinary Bladder: There is moderately severe urinary bladder distention. Retroperitoneal Structures: There is extensive atherosclerotic disease about the abdominal aorta and its branch vessels. There is fusiform aneurysmal dilatation of the mid abdominal aorta measuring 3.4 x 4.2 cm. Bowel Survey: There is a large amount residual stool within the rectum which is distended measuring 8 .7 x 8.0 cm. There is moderately severe diverticulosis of the descending and sigmoid colon. Uterus and Adnexa: There is a left ovarian cyst which measures 5.2 x 5.8 cm. Peritoneal Cavity: Normal. Mesenteric Structures: Normal. Abdominal Wall: No hernia. Bony Structures: No suspicious lesions. IMPRESSION: 1. Large amount of residual stool within the rectum suggesting possible fecal impaction. 2. Diverticulosis of the descending and sigmoid colon. 3. Hepatic cirrhosis. 4. Fusiform aneurysm of the mid abdominal aorta. 5. Small right renal mass. Nonemergent ultrasound evaluation recommended. 6. Moderately severe distention of the urinary bladder. 7. Left ovarian cyst Electronically signed by: Christopher De La Cruz MD 07/29/2019 11:11 PM CDT Due to temporary technical issues with the PACS/Fluency reporting system, reports are being signed by the in house radiologist as a courtesy to ensure prompt reporting. The interpreting radiologist is f ully responsible for the content of the report.
--- NOTE | 2019-08-01 12:59 | RAD REPORT ---
EXAM DESCRIPTION: CT - Head Brain Wo Cont - 08/01/2019 12:44 pm CLINICAL HISTORY: Head injury status post fall COMPARISON: July 29, 2019 TECHNIQUE: Computed axial tomography of the head was obtained. IV contrast was not requested. All CT scans are performed using dose optimization technique as appropriate and may include automated exposure control or mA/KV adjustment according to patient size. FINDINGS: An intracranial bleed is not seen . The ventricles are normal in caliber. No extra-axial fluid collection is noted. Moderate cystic encephalomalacia right cerebrum unchanged probably the sequela of prior infarction. . Fluid within the sinuses/ mastoids is not seen. IMPRESSION: No acute intracranial abnormality is seen. If patient's symptoms persist MRI of the bra in would be recommended.
[2019-08-01] MEDS: NYSTATIN 100MU/GM CREAM 15GM TOP SCH ×2 (13:27→21:00)
[2019-08-01] MEDS ORDERED: LACTULOSE 20 GM/30 ML UCUP PO PRN (14:20)
[2019-08-01] MEDS ORDERED: FENTANYL 25 MCG/PATCH TD SCH (14:22)
[2019-08-01] MEDS: DOCUSATE NA 100 MG CAP PO SCH (14:51)
[2019-08-01] MEDS ORDERED: ENOXAPARIN 40 MG/0.4 ML SQ SCH (17:00)
[2019-08-01] MEDS: METOPROLOL TAR 25 MG TAB PO SCH (17:22)
[2019-08-01] MEDS: METFORMIN HCL 500 MG TAB PO SCH (17:22)
[2019-08-01] MEDS: ARFORMOTEROL TARTRATE 15 MCG/2 ML VIAL.NEB NEB SCH (20:00)
[2019-08-01] MEDS ORDERED: POTASSIUM CL SA 10 MEQ TAB PO ONE (20:12)
[2019-08-01] MEDS: ATORVASTATIN 20 MG TAB PO SCH (20:58)
[2019-08-01] MEDS: APIXABAN 5 MG TABLET PO SCH (20:59)
[2019-08-01] MEDS ORDERED: QUETIAPINE 100MG TAB PO SCH (21:00)
[2019-08-01] MEDS ORDERED: LIDOCAINE 5% 30 GM TUBE (for wound healing center only) TOP SCH ×2 (21:00)
[2019-08-01] MEDS: LIDOCAINE 4% PATCH TOP SCH (21:02)
[2019-08-02] MEDS: HALOPERIDOL LACT 5 MG/ML INJ IV PRN (00:13)
[2019-08-02 05:37] LABS: Absolute Lymphocytes (CBC) 1.2 K/uL (0.7-4.9); Basophils % 0.6 % (0-1.3); Hematocrit 36.6 % (36.0-45.0); MPV 9.9 fL (7.6-11.3); RBC Red Blood Cell Count 4.16 M/uL (3.86-4.86)
[2019-08-02] MEDS: LEVOTHYROXINE SOD 0.1 MG TAB PO SCH (05:52)
[2019-08-02] MEDS: METOPROLOL TAR 25 MG TAB PO SCH ×2 (05:52→17:46)
[2019-08-02 05:55] LABS: Magnesium 2.1 mg/dL (1.8-2.4); Potassium 4.1 mmol/L (3.5-5.1)
[2019-08-02] MEDS: ARFORMOTEROL TARTRATE 15 MCG/2 ML VIAL.NEB NEB SCH ×2 (08:00→20:00)
[2019-08-02] MEDS: METFORMIN HCL 500 MG TAB PO SCH ×3 (08:00→17:46)
[2019-08-02] MEDS: FLUCONAZOLE 100 MG TAB PO SCH ×2 (09:00→09:08)
[2019-08-02] MEDS: DULOXETINE 30 MG CAP PO SCH (09:00)
[2019-08-02] MEDS: THIAMINE HCL 100 MG TABLET PO SCH ×2 (09:00→09:06)
[2019-08-02] MEDS: DIVALPROEX ER 250 MG TAB PO SCH ×4 (09:00→20:33)
[2019-08-02] MEDS: SITAGLIPTIN PHOS 100 MG TAB PO SCH (09:05)
[2019-08-02] MEDS: DIGOXIN 0.125 MG TABLET PO SCH (09:06)
[2019-08-02] MEDS: NICOTINE 21 MG/PAT TD SCH (09:07)
[2019-08-02] MEDS: APIXABAN 5 MG TABLET PO SCH ×2 (09:07→20:33)
[2019-08-02] MEDS: ISOSORBIDE DINIT 20 MG TAB PO SCH ×3 (09:08→20:32)
[2019-08-02] MEDS: NYSTATIN 100MU/GM CREAM 15GM TOP SCH ×2 (13:58→20:46)
[2019-08-02] MEDS: DOCUSATE NA 100 MG CAP PO SCH (14:20)
--- NOTE | 2019-08-02 15:24 | P.PN ---
Subjective Date of Service: 08/02/19 Primary Care Provider: care home Chief Complaint: Altered mental status Review of Systems 10-point ROS is otherwise unremarkable Physical Examination - Vital Signs Temperature: 97.7 F Blood Pressure: 151/87 Pulse: 67 Respirations: 17 Pulse Ox (%): 99 - Physical Exam General: Other (Lethargic responding to verbal stimuli) HEENT: Atraumatic, PERRLA, EOMI Neck: Supple, JVD not distended Respiratory: Clear to auscultation bilaterally, Normal air movement Cardiovascular: Regular rate/rhythm, Normal S1 S2 Gastrointestinal: Normal bowel sounds, No tenderness Musculoskeletal: No tenderness Integumentary: No rashes Lymphatics: No axilla or inguinal lymphadenopathy - Studies Medications List Reviewed: Yes Assessment And Plan - Current Problems (Diagnosis) (1) Altered mental status Current Visit: Yes Status: Acute Plan: Altered mental status most likely secondary to progression of dementia with behavioral disturbance -patient was given Ativan, Haldol and Geodon last night. This morning patient appears to be very lethargic arousable only to sternal rub. Protecting her airway. Will at this time Dc Haldol, GI doctor, Ativan along with fentanyl patch. Will monitor patient for next 24-48 hr for any improvement. -head CT negative for any acute abnormality -MRI also negative for any acute abnormality -will monitor patient closely here in the hospital Qualifiers: Altered mental status type: somnolence Qualified Code(s): R40.0 - Somnolence (2) Acute kidney injury Current Visit: Yes Status: Acute Plan: Acute kidney injury most likely secondary to dehydration -Renal function back to baseline. -Discontinue IV fluids. (3) Atrial fibrillation Current Visit: No Status: Chronic Plan: Chronic atrial fibrillation on chronic anti coagulation therapy -metoprolol and Eliquis Qualifiers: Atrial fibrillation type: paroxysmal Qualified Code(s): I48.0 - Paroxysmal atrial fibrillation (4) CHF (congestive heart failure) Current Visit: No Status: Chronic Plan: Currently stable -will continue with home medications at this time Qualifiers: Heart failure type: systolic Heart failure chronicity: chronic Qualified Code(s): I50.22 - Chronic systolic (congestive) heart failure (5) COPD (chronic obstructive pulmonary disease) Current Visit: No Status: Chronic Plan: COPD -duo nebs and oxygen as needed Qualifiers: COPD type: chronic bronchitis Chronic bronchitis type: unspecified Qualified Code(s): J42 - Unspecified chronic bronchitis (6) DM2 (diabetes mellitus, type 2) Current Visit: No Status: Chronic Plan: Insulin sliding scale and Accu-Chek Qualifiers: Diabetes mellitus joint terminal attack controller insulin use: unspecified joint terminal attack controller insulin use status (7) Dementia with behavioral problem Current Visit: No Status: Chronic Plan: As above Qualifiers: Dementia type: Alzheimer's disease Alzheimer's disease onset: late-onset Qualified Code(s): G30.1 - Alzheimer's disease with late onset; F02.81 - Dementia in other diseases classified elsewhere with behavioral disturbance (8) Peripheral arterial disease Current Visit: No Status: Chronic - Plan Pending clinical improvement at this time. Patient has [facility] eval pending by the psychiatrist here in the hospital. Will follow up with recommendations. Discharge Plan: Home Plan to discharge in: Greater than 2 days - Code Status/Comfort Care Code Status Assessed: Yes Critical Care: No
[2019-08-02] MEDS ORDERED: LIDOCAINE 5% 30 GM TUBE (for wound healing center only) TOP SCH (19:41)
[2019-08-02] MEDS: IPRATROPIUM BROM 0.5MG/2.5ML NEB PRN (20:00)
[2019-08-02] MEDS: OLANZapine 2.5 MG TAB PO SCH (20:31)
[2019-08-02] MEDS: LIDOCAINE 4% PATCH TOP SCH (20:31)
[2019-08-02] MEDS: ATORVASTATIN 20 MG TAB PO SCH (20:33)
[2019-08-03] MEDS: LEVOTHYROXINE SOD 0.1 MG TAB PO SCH (05:43)
[2019-08-03] MEDS: METOPROLOL TAR 25 MG TAB PO SCH ×2 (05:43→17:02)
[2019-08-03 06:30] LABS: Magnesium 2.1 mg/dL (1.8-2.4); Potassium 3.9 mmol/L (3.5-5.1)
--- NOTE | 2019-08-03 06:30 | EKG ---
Test Date: 2019-08-02 Test Time: 11:18:15 Cake Knocker: LEONARD MEASUREMENT RESULTS: Intervals: Rate: 57 AK: QRSD: 76 QT: 428 QTc: 416 [place]: P: AK: QRS: 16 T: -76 INTERPRETIVE STATEMENTS: Atrial fibrillation with slow ventricular response Low voltage QRS Septal infarct, age undetermined T wave abnormality, consider anterior ischemia or digitalis effect Abnormal ECG Compared to ECG 07/30/2019 00:57:39 T-wave abnormality now present Possible ischemia now present Myocardial infarct finding still present Electronically Signed On 08-03-19 06:29:56 CDT by Freddie Mcclain
[2019-08-03 06:32] LABS: Absolute Lymphocytes (CBC) 0.9 K/uL (0.7-4.9); Basophils % 0.6 % (0-1.3); Lymphocytes % 14.6 % (15.3-44.8); MPV 9.6 fL (7.6-11.3); RBC Red Blood Cell Count 3.98 M/uL (3.86-4.86)
[2019-08-03] MEDS ORDERED: POTASSIUM 25 MEQ EFFERV TAB PO ONE (07:30)
[2019-08-03] MEDS: DULOXETINE 30 MG CAP PO SCH (08:40)
[2019-08-03] MEDS: DIGOXIN 0.125 MG TABLET PO SCH (08:40)
[2019-08-03] MEDS: THIAMINE HCL 100 MG TABLET PO SCH (08:40)
[2019-08-03] MEDS: SITAGLIPTIN PHOS 100 MG TAB PO SCH (08:41)
[2019-08-03] MEDS: NICOTINE 21 MG/PAT TD SCH (08:41)
[2019-08-03] MEDS: METFORMIN HCL 500 MG TAB PO SCH ×2 (08:43→17:03)
[2019-08-03] MEDS: FLUCONAZOLE 100 MG TAB PO SCH (08:43)
[2019-08-03] MEDS: APIXABAN 5 MG TABLET PO SCH ×2 (08:43→21:35)
[2019-08-03] MEDS: DOCUSATE NA 100 MG CAP PO SCH (08:43)
[2019-08-03] MEDS: NYSTATIN 100MU/GM CREAM 15GM TOP SCH ×2 (08:44→21:37)
[2019-08-03] MEDS: ISOSORBIDE DINIT 20 MG TAB PO SCH ×3 (08:44→21:35)
[2019-08-03] MEDS: DIVALPROEX ER 250 MG TAB PO SCH ×3 (08:44→21:35)
--- NOTE | 2019-08-03 12:31 | P.PN ---
Subjective Date of Service: 08/03/19 Primary Care Provider: care home Chief Complaint: Altered mental status Pt seen and examined this AM. Chart Reviewed. Patient this AM more arousable Still appears to be lethargic but much better than before. No other complains to offer. Review of Systems 10-point ROS is otherwise unremarkable Physical Examination - Vital Signs Temperature: 97 F Blood Pressure: 130/72 Pulse: 59 Respirations: 16 Pulse Ox (%): 98 - Physical Exam General: In no apparent distress, Demented, Other (Arousable with verbal Stimuli ) HEENT: Atraumatic, PERRLA, EOMI Neck: Supple, JVD not distended Respiratory: Clear to auscultation bilaterally, Normal air movement Cardiovascular: Regular rate/rhythm, Normal S1 S2 Gastrointestinal: Normal bowel sounds, No tenderness Musculoskeletal: No tenderness Integumentary: No rashes Neurological: Normal tone, Normal affect Lymphatics: No axilla or inguinal lymphadenopathy - Studies Medications List Reviewed: Yes Assessment And Plan - Current Problems (Diagnosis) (1) Altered mental status Current Visit: Yes Status: Acute Plan: Altered mental status most likely secondary to progression of dementia with behavioral disturbance -Sana Maynard and [facility] Ramírez DC now. This morning patient appears to be lethargic but better than before. -Psyc consulted. Apprecaited Reccs -head CT negative for any acute abnormality -MRI also negative for any acute abnormality -will monitor patient closely here in the hospital Qualifiers: Altered mental status type: somnolence Qualified Code(s): R40.0 - Somnolence (2) Acute kidney injury Current Visit: Yes Status: Acute Plan: Acute kidney injury most likely secondary to dehydration -Renal function back to baseline. -Discontinue IV fluids. (3) Atrial fibrillation Current Visit: No Status: Chronic Plan: Chronic atrial fibrillation on chronic anti coagulation therapy -metoprolol and Eliquis Qualifiers: Atrial fibrillation type: paroxysmal Qualified Code(s): I48.0 - Paroxysmal atrial fibrillation (4) CHF (congestive heart failure) Current Visit: No Status: Chronic Plan: Currently stable -will continue with home medications at this time Qualifiers: Heart failure type: systolic Heart failure chronicity: chronic Qualified Code(s): I50.22 - Chronic systolic (congestive) heart failure (5) COPD (chronic obstructive pulmonary disease) Current Visit: No Status: Chronic Plan: COPD -duo nebs and oxygen as needed Qualifiers: COPD type: chronic bronchitis Chronic bronchitis type: unspecified Qualified Code(s): J42 - Unspecified chronic bronchitis (6) DM2 (diabetes mellitus, type 2) Current Visit: No Status: Chronic Plan: Insulin sliding scale and Accu-Chek Qualifiers: Diabetes mellitus intermediate insulin use: unspecified intermediate insulin use status (7) Dementia with behavioral problem Current Visit: No Status: Chronic Plan: As above Qualifiers: Dementia type: Alzheimer's disease Alzheimer's disease onset: late-onset Qualified Code(s): G30.1 - Alzheimer's disease with late onset; F02.81 - Dementia in other diseases classified elsewhere with behavioral disturbance (8) Peripheral arterial disease Current Visit: No Status: Chronic - Plan Pending clinical improvement at this time. Patient has [facility] eval Done, however patient was nonverbal yesterday. Will f.u with [facility] today again. Discharge Plan: Other Plan to discharge in: Greater than 2 days
[2019-08-03] MEDS: ARFORMOTEROL TARTRATE 15 MCG/2 ML VIAL.NEB NEB SCH ×2 (13:00→19:35)
--- NOTE | 2019-08-03 13:10 | RAD REPORT ---
EXAM DESCRIPTION: RAD - Chest Single View - 08/03/2019 1:01 pm CLINICAL HISTORY: SOB Chest pain. COMPARISON: Chest Single View dated 08/01/2019; Chest Single View dated 07/31/2019; Chest Single Vie w dated 07/29/2019 FINDINGS: Portable technique limits examination quality. Mild pulmonary edema persists. Small bilateral pleural effusions are noted, appearing mildly increase d in size since comparative study. The heart is moderately enlarged in size. Sternotomy wires present . IMPRESSION: Mild progression in CHF pattern is observed.
[2019-08-03] MEDS: LIDOCAINE 4% PATCH TOP SCH (21:35)
[2019-08-03] MEDS: ATORVASTATIN 20 MG TAB PO SCH (21:35)
[2019-08-03] MEDS: OLANZapine 2.5 MG TAB PO SCH (21:35)
[2019-08-04] MEDS: LEVOTHYROXINE SOD 0.1 MG TAB PO SCH (05:34)
[2019-08-04] MEDS: METOPROLOL TAR 25 MG TAB PO SCH ×2 (05:37→15:54)
[2019-08-04 06:59] LABS: Potassium 4.1 mmol/L (3.5-5.1)
[2019-08-04] MEDS: ARFORMOTEROL TARTRATE 15 MCG/2 ML VIAL.NEB NEB SCH ×2 (08:20→20:00)
[2019-08-04] MEDS: SITAGLIPTIN PHOS 100 MG TAB PO SCH (08:27)
[2019-08-04] MEDS: DULOXETINE 30 MG CAP PO SCH (08:27)
[2019-08-04] MEDS: APIXABAN 5 MG TABLET PO SCH ×2 (08:28→20:08)
[2019-08-04] MEDS: ISOSORBIDE DINIT 20 MG TAB PO SCH ×3 (08:28→20:09)
[2019-08-04] MEDS: DIGOXIN 0.125 MG TABLET PO SCH (08:28)
[2019-08-04] MEDS: METFORMIN HCL 500 MG TAB PO SCH ×2 (08:28→15:54)
[2019-08-04] MEDS: FLUCONAZOLE 100 MG TAB PO SCH (08:28)
[2019-08-04] MEDS: THIAMINE HCL 100 MG TABLET PO SCH (08:28)
[2019-08-04] MEDS: DIVALPROEX ER 250 MG TAB PO SCH ×3 (08:28→20:08)
[2019-08-04] MEDS: NYSTATIN 100MU/GM CREAM 15GM TOP SCH (08:29)
[2019-08-04] MEDS: NICOTINE 21 MG/PAT TD SCH (08:29)
--- NOTE | 2019-08-04 10:29 | CON ---
Subjective: Ms. Vaishali Leary is a 73-year-old female, admitted via the ER on July 30, 2019 on account of altered mental status. Patient was transferred to the ER from [facility] where she has been a resident for approximately 2 weeks. She was recently discharged from a geriatric psychiatric facility in [place] where she was admitted for worsening behavioral disturbances due to dementia, Psychiatry is consulted to assist with patient's medication management. Admitting workup done on admission, which includes CT scan of the head and abdomen, showed no significant findings. Her initial blood work revealed elevated white blood cell count as well as elevated neutrophil counts. She was also found to be dehydrated. On interview patient is a poor historian and unable to fully participate with this evaluation. Information was obtained from chart review, talking with patient caregiver and primary team doctor. Chart review did not indicate any history of depression or suicidal ideation. No history of self-injurious behavior. Spoke with next of kin who states patient physical condition has been deteriorating hence became very difficulty for her younger son whom she was living with in [place] to care for her. She states she is not patient has been diagnosed with Dementia, however her memory has progressively diminished. She also provides history of significant mental illness in the family stating patient's mother had history of bipolar disorder well as patient's oldest son Patient current psychotropic medications includes Seroquel 200 mg p.o. q.h.s., Depakote 250 mg p.o. t.i.d., Cymbalta 60 mg p.o. daily, fentanyl patch 12 mcg Daily. Objective: Vital Signs: BP 131/74, Temp:98.8, RR: 16, O2 98 Mental Status: General examination noticed a fairly well-nourished female, looks older than stated age, dressed in hospital gown, lying in bed, lethargic and drowsy. Not able to participate with this examination. She is however not observed to be responding to internal stimuli. Diagnoses: 1. Delirium. 2. Dementia behavioral disturbance Recommendations: 1. Continue Depakote 250 mg p.o. t.i.d. for mood stability 2. Discontinue Fentanyl Patch 3. Continue Cymbalta 60 mg p.o. daily for depressive and anxiety symptoms. 4. Start Zyprexa 5 mg p.o. q.h.s. for agitation and mood stability. 5. Discontinue Seroquel 200 mg p.o. 6. Discussed recommendations Dr. Nieves. Psychiatry will followup as needed. Thank you very much for the consult LAUREN Voice ID: [id number] Report ID: [id number] MTDD
--- NOTE | 2019-08-04 13:19 | P.PN ---
Subjective Date of Service: 08/04/19 Primary Care Provider: [facility] Chief Complaint: Altered mental status Pt seen and examined this AM. Chart Reviewed. Pt this morning much alert than before. No other complains. Pending SNF placement Review of Systems 10-point ROS is otherwise unremarkable Physical Examination - Vital Signs Temperature: 96.8 F Blood Pressure: 150/72 Pulse: 55 Respirations: 16 Pulse Ox (%): 99 - Physical Exam General: Alert, In no apparent distress HEENT: Atraumatic, PERRLA, EOMI Neck: Supple, JVD not distended Respiratory: Clear to auscultation bilaterally, Normal air movement Cardiovascular: Regular rate/rhythm, Normal S1 S2 Gastrointestinal: Normal bowel sounds, No tenderness Musculoskeletal: No tenderness Integumentary: No rashes Neurological: Normal speech, Normal tone, Normal affect Lymphatics: No axilla or inguinal lymphadenopathy - Studies Microbiology Data (last 24 hrs): 07/29/19 22:59 Blood - Blood Aerobic Blood Culture - Final No growth in 5 days. 07/29/19 22:59 Blood - Blood Anaerobic Blood Culture - Final No growth in 5 days. 07/29/19 22:20 Blood - Blood Aerobic Blood Culture - Final No growth in 5 days. 07/29/19 22:20 Blood - Blood Anaerobic Blood Culture - Final No growth in 5 days. Medications List Reviewed: Yes Assessment And Plan - Current Problems (Diagnosis) (1) Altered mental status Current Visit: Yes Status: Acute Plan: Altered mental status most likely secondary to progression of dementia with behavioral disturbance -AtSana granda and lavern Ramírez DC now. -This morning patient appears to be alert -Psyc consulted. Apprecaited Reccs -head CT negative for any acute abnormality -MRI also negative for any acute abnormality -will monitor patient closely here in the hospital Qualifiers: Altered mental status type: somnolence Qualified Code(s): R40.0 - Somnolence (2) Acute kidney injury Current Visit: Yes Status: Acute Plan: Acute kidney injury most likely secondary to dehydration -Renal function back to baseline. -Discontinue IV fluids. (3) Atrial fibrillation Current Visit: No Status: Chronic Plan: Chronic atrial fibrillation on chronic anti coagulation therapy -metoprolol and Eliquis Qualifiers: Atrial fibrillation type: paroxysmal Qualified Code(s): I48.0 - Paroxysmal atrial fibrillation (4) CHF (congestive heart failure) Current Visit: No Status: Chronic Plan: Currently stable -will continue with home medications at this time Qualifiers: Heart failure type: systolic Heart failure chronicity: chronic Qualified Code(s): I50.22 - Chronic systolic (congestive) heart failure (5) COPD (chronic obstructive pulmonary disease) Current Visit: No Status: Chronic Plan: COPD -duo nebs and oxygen as needed Qualifiers: COPD type: chronic bronchitis Chronic bronchitis type: unspecified Qualified Code(s): J42 - Unspecified chronic bronchitis (6) DM2 (diabetes mellitus, type 2) Current Visit: No Status: Chronic Plan: Insulin sliding scale and Accu-Chek Qualifiers: Diabetes mellitus penitentiary insulin use: unspecified penitentiary insulin use status (7) Dementia with behavioral problem Current Visit: No Status: Chronic Plan: As above Qualifiers: Dementia type: Alzheimer's disease Alzheimer's disease onset: late-onset Qualified Code(s): G30.1 - Alzheimer's disease with late onset; F02.81 - Dementia in other diseases classified elsewhere with behavioral disturbance (8) Peripheral arterial disease Current Visit: No Status: Chronic - Plan Pending placement at this time. No Pain medication and Benzo per psych. Discharge Plan: Other Plan to discharge in: 48 Hours - Code Status/Comfort Care Code Status Assessed: Yes Critical Care: No
--- NOTE | 2019-08-04 16:55 | P.DS ---
Admission Date: 07/30/19 Discharge Date: 08/04/19 Primary Care Provider: detention Disposition: TRANSFER TO RESIDENTIAL Discharge Condition: GOOD Reason for Admission: Altered mental status - Problems (1) Altered mental status Current Visit: Yes Status: Acute Qualifiers: Altered mental status type: somnolence Qualified Code(s): R40.0 - Somnolence (2) Acute kidney injury Current Visit: Yes Status: Acute (3) Atrial fibrillation Current Visit: No Status: Chronic Qualifiers: Atrial fibrillation type: paroxysmal Qualified Code(s): I48.0 - Paroxysmal atrial fibrillation (4) CHF (congestive heart failure) Current Visit: No Status: Chronic Qualifiers: Heart failure type: systolic Heart failure chronicity: chronic Qualified Code(s): I50.22 - Chronic systolic (congestive) heart failure (5) COPD (chronic obstructive pulmonary disease) Current Visit: No Status: Chronic Qualifiers: COPD type: chronic bronchitis Chronic bronchitis type: unspecified Qualified Code(s): J42 - Unspecified chronic bronchitis (6) DM2 (diabetes mellitus, type 2) Current Visit: No Status: Chronic Qualifiers: Diabetes mellitus fpc insulin use: unspecified manager terminal insulin use status (7) Dementia with behavioral problem Current Visit: No Status: Chronic Qualifiers: Dementia type: Alzheimer's disease Alzheimer's disease onset: late-onset Qualified Code(s): G30.1 - Alzheimer's disease with late onset; F02.81 - Dementia in other diseases classified elsewhere with behavioral disturbance (8) Peripheral arterial disease Current Visit: No Status: Chronic Brief History of Present Illness: Patient is a 73-year-old female who presents to the emergency room with altered mentation. Patient was recently had a geriatric psychiatric facility. Patient normally walks with a walker or wheelchair. She had been walking at the [facility] with a wheelchair. She was treated for her behavioral disturbances and discharged on Seroquel to [facility] for fdc treatment. Patient normally can engage in conversation without much difficulty. Patient had been doing well according to the [facility] staff until 2 days ago when patient became confused. Patient became more lethargic over the last 48 hr and was sent to our facility. In the emergency room, initial workup revealed dehydration. CT of the head was negative. CT for stone protocol was also negative. Patient did have significant bladder retention and on placement of Nava catheter 1400 cc of urine output was obtained. Patient also looks to be impacted. According to patient's daughter in-law who works at the hospital as a RN in information technology(IT), patient goes between constipation and diarrhea. Patient was in [place] under hospice care for COPD and vascular disease. When patient moved here to be with family this was discontinued. Patient was at the [facility] for about 3 weeks. She was sent to [facility] about a week ago. At this time, patient is a do not attempt resuscitation. We will discuss with family regarding further care once all studies are obtained. Hospital Course: Overall during the hospital stay patient remained stable Patient was initially admitted to the hospital for altered mental status and dehydration causing GOPI. Patient had IV fluids here in the hospital and was started on the [facility] psych medication. Psychiatrist was consulted who saw the patient here who recommended olanzapine at night p.r.n. and discontinue of Haldol, and Ativan along with the fentanyl patch. Patient had marked improvement in her symptoms and was referred over to fdc facility for placement. Patient was accepted at [facility] and thus was transferred there for further care. While here in the hospital patient also had acute kidney injury which was treated with IV fluids and her BUN and creatinine did improve while here in the hospital as well. Detailed discussion was done with family member at bedside and advised against the use of benzodiazepine and pain management given the patient's progressive dementia. Family demonstrated understanding and patient was discharged to senior care under stable condition Vital Signs/Physical Exam: Temp Pulse Resp BP Pulse Ox 96.8 F 67 16 131/74 98 08/04/19 16:00 08/04/19 16:00 08/04/19 16:00 08/04/19 16:00 08/04/19 16:00 General: Alert, Oriented x1, Demented, Confused HEENT: Atraumatic, PERRLA, EOMI Neck: Supple, JVD not distended Respiratory: Clear to auscultation bilaterally, Normal air movement Cardiovascular: Regular rate/rhythm, Normal S1 S2 Gastrointestinal: Normal bowel sounds, No tenderness Musculoskeletal: No tenderness Integumentary: No rashes Neurological: Normal speech, Normal tone, Normal affect Lymphatics: No axilla or inguinal lymphadenopathy Laboratory Data at Discharge: WBC 6.2 K/uL (4.3-10.9) D 08/03/19 05:59 Hgb 11.5 g/dL (12.0-15.0) L 08/03/19 05:59 Hct 35.0 % (36.0-45.0) L 08/03/19 05:59 Plt Count 186 K/uL (152-406) 08/03/19 05:59 PT 22.3 SECONDS (9.5-12.5) H 07/29/19 22:59 INR 1.94 07/29/19 22:59 Sodium 142 mmol/L (136-145) 08/04/19 06:23 Potassium 4.1 mmol/L (3.5-5.1) 08/04/19 06:23 BUN 14 mg/dL (7-18) 08/04/19 06:23 Creatinine 0.75 mg/dL (0.55-1.3) 08/04/19 06:23 Glucose 97 mg/dL (74-106) 08/04/19 06:23 Magnesium 2.1 mg/dL (1.8-2.4) 08/03/19 05:59 Total Bilirubin 0.8 mg/dL (0.2-1.0) 07/31/19 05:30 AST 18 U/L (15-37) 07/31/19 05:30 ALT 12 U/L (12-78) 07/31/19 05:30 Alkaline Phosphatase 61 U/L (45-117) 07/31/19 05:30 Lipase 48 U/L (73-393) L 07/29/19 22:59 Home Medications: Acetaminophen [Tylenol] 650 mg PO Q6HP PRN 07/30/19 Apixaban [Eliquis] 5 mg PO BID 07/30/19 Atorvastatin Calcium [Lipitor*] 20 mg PO BEDTIME 07/30/19 Digoxin [Lanoxin*] 125 mcg PO DAILY 07/30/19 Divalproex ER [Depakote *ER] 250 mg PO TID 07/30/19 Duloxetine HCl [Cymbalta] 60 mg PO DAILY 07/30/19 Furosemide [Lasix*] 40 mg PO DAILY 07/30/19 Gabapentin [Neurontin*] 100 mg PO BID 07/30/19 Isosorbide Dinitrate 30 mg PO DAILY 07/30/19 LORazepam [Ativan*] 1 mg PO BID 07/30/19 Levothyroxine Sodium 200 mcg PO DAILY 07/30/19 Lidocaine [Lidocaine Pain Relief] 1 each TP BEDTIME 07/30/19 Metformin HCl [Glucophage*] 500 mg PO BIDWM 07/30/19 Nicotine [Nicoderm*] 1 patch TD DAILY 07/30/19 Nystatin Cream [Mycostatin 100MU/Gm Cream*] 1 appl TOP BID 07/30/19 Quetiapine [Seroquel*] 200 mg PO BEDTIME 07/30/19 Sitagliptin Phosphate [Januvia*] 50 mg PO DAILY 07/30/19 fentaNYL [Fentanyl] 1 each TD SEECOM 07/30/19 Arformoterol Tartrate [Brovana] 15 mcg NEB BIDRESP [email or web address] 08/04/19 Diet: Regular Activity: Ad octavia
[2019-08-04] MEDS: IPRATROPIUM BROM 0.5MG/2.5ML NEB PRN (20:00)
[2019-08-04] MEDS: OLANZapine 2.5 MG TAB PO SCH (20:06)
[2019-08-04] MEDS: ATORVASTATIN 20 MG TAB PO SCH (20:09)
[2019-08-04 22:08] VITALS: BP 122/64; TEMP 97
[2019-08-05 01:11] VITALS: O2SAT 94
== END 2019-08-04 22:20 | DRG 641 ==
LOC: ER 21:27 → ERHOLD 07-30 01:25 → 4TH 07-30 01:43 → OBSVTOIN 07-30 06:36
PROVIDERS: ADMIT Hospitalist; ATTEND Hospitalist
DX: E86.0 Dehydration (principal); N17.9 Acute kidney failure, unspecified; I50.22 Chronic systolic (congestive) heart failure; F01.51 Vascular dementia, unspecified severity, with behavioral disturbance; G93.40 Encephalopathy, unspecified; F02.81 Dementia in other diseases classified elsewhere, unspecified severity, with behavioral disturbance; I48.0 Paroxysmal atrial fibrillation; J44.9 Chronic obstructive pulmonary disease, unspecified; I11.0 Hypertensive heart disease with heart failure; E03.9 Hypothyroidism, unspecified; F41.8 Other specified anxiety disorders; E78.5 Hyperlipidemia, unspecified; I73.9 Peripheral vascular disease, unspecified; M79.602 Pain in left arm; W06.XXXA Fall from bed, initial encounter; Y92.230 Patient room in hospital as the place of occurrence of the external cause; Z79.01 Long term (current) use of anticoagulants; G30.1 Alzheimer's disease with late onset
CPT/HCPCS: 36415; 51702; 70450; 71045; 74176; 76377; 80048; 80053; 80076; 80162; 80164; 81001; 81003; 82140; 82607; 82728; 82805; 82947; 83036; 83540; 83605; 83690; 83735; 83880; 84132; 84443; 84466; 84484; 85025; 85610; 87040; 87086; 87088; 93005; 94640; 96365; 96367; 96368; 97110; 97112; 97116; 97161; 97530; 99285; G0378; J0692; J0696; J1630; J2270; J3411; J3475; J3486; J7030; J7040; J7605

== ENCOUNTER 2019-10-23 20:23 | Observation (INO) | payer OTHER ==
[2019-10-23] MEDS ORDERED: LORazepam 2 MG/ML VIAL ONE (21:17)
[2019-10-23] MEDS ORDERED: THIAMINE 200 MG/2 ML INJ ONE (21:17)
[2019-10-23] MEDS ORDERED: NA CHLORIDE 0.9% 1,000 ML ONE (21:18)
[2019-10-23] MEDS ORDERED: FOLIC ACID 5 MG/ML VIAL ONE (21:19)
[2019-10-23] MEDS ORDERED: CEFTRIAXONE/SWI 1gm 1 GM/10 ML SYR ONE ×2 (21:19)
[2019-10-23 21:42] LABS: Absolute Lymphocytes (CBC) 2.5 K/uL (0.7-4.9); Basophils % 0.3 % (0-1.3); Hematocrit 32.3 % (36.0-45.0); Lymphocytes % 27.3 % (15.3-44.8); MPV 8.1 fL (7.6-11.3); RBC Red Blood Cell Count 3.32 M/uL (3.86-4.86)
[2019-10-23 21:43] LABS: Protime INR 1.37
--- NOTE | 2019-10-23 22:11 | RAD REPORT ---
EXAM DESCRIPTION: RAD - Chest Single View - 10/23/2019 10:02 pm CLINICAL HISTORY: COUGH Chest pain. COMPARISON: Chest Single View dated 08/03/2019; Chest Single View dated 08/01/2019; Chest Single Vie w dated 07/31/2019; Chest Single View dated 07/29/2019 FINDINGS: Portable technique limits examination quality. Mild interstitial pulmonary edema seen. A small left pleural effusion is likely present. The heart is mildly enlarged in size with sternotomy wires present. No displaced fractures. IMPRESSION: Mild CHF versus volume overload pattern.
[2019-10-23 22:13] LABS: ALT/SGPT 10 U/L (12-78); AST/SGOT 20 U/L (15-37); Albumin 2.2 g/dL (3.4-5.0); Alkaline Phosphatase 91 U/L (45-117); BUN Blood Urea Nitrogen 16 mg/dL (7-18); Bicarbonate 31 mmol/L (21-32); Bilirubin Direct 0.2 mg/dL (0-0.2); Bilirubin Total 0.4 mg/dL (0.2-1.0); Glucose Level 139 mg/dL (74-106); Lipase 24 U/L (73-393); NT PRO-BNP 6787 pg/mL (<125); Potassium 3.6 mmol/L (3.5-5.1); Protein, Total 6.7 g/dL (6.4-8.2); Sodium Level 137 mmol/L (136-145); Troponin (Emerg Dept Use Only) < 0.02 ng/mL (0.0-0.045)
--- NOTE | 2019-10-23 22:13 | RAD REPORT ---
EXAM DESCRIPTION: RAD - Pelvis - 10/23/2019 10:02 pm CLINICAL HISTORY: PAIN COMPARISON: No comparisons FINDINGS: Diffuse osteopenia is seen. No fracture is identified.
[2019-10-23 22:15] LABS: Magnesium 1.3 mg/dL (1.8-2.4)
--- NOTE | 2019-10-23 22:32 | EDPHYS ---
Physician Documentation [facility] Name: Vaishali Leary Age: 74 yrs Sex: Female : 1945 Arrival Date: 10/23/2019 Time: 20:27 Bed 20 Private MD: ED Physician Nathaniel Anderson HPI: 10/23 20:59 This 74 yrs old Unknown Female presents to ER via EMS with complaints of Hip Pain. gabo 20:59 The patient or guardian reports decreased range of motion. gabo Historical: - Allergies: 20:29 Glipizide; sg 20:29 Sulfa (Sulfonamide Antibiotics); sg 20:29 Iodine; sg - PMHx: 20:29 Atrial Fib; CHF; COPD; delirium; Dementia; Diabetes - NIDDM; Hyperlipidemia; sg Hypothyroidism; - Immunization history:: Adult Immunizations up to date. - Social history:: Smoking status: unknown. - Ebola Screening: : Patient negative for fever greater than or equal to 101.5 degrees Fahrenheit, and additional compatible Ebola Virus Disease symptoms Patient denies exposure to infectious person Patient denies travel to an Ebola-affected area in the 21 days before illness onset No symptoms or risks identified at this time. ROS: 20:59 Constitutional: Negative for fever, chills, and weight loss, Eyes: Negative for injury, gabo pain, redness, and discharge, ENT: Negative for injury, pain, and discharge, Neck: Negative for injury, pain, and swelling, Cardiovascular: Negative for chest pain, palpitations, and edema, Respiratory: Negative for shortness of breath, cough, wheezing, and pleuritic chest pain, Abdomen/GI: Negative for abdominal pain, nausea, vomiting, diarrhea, and constipation, Back: Negative for injury and pain, : Negative for injury, bleeding, discharge, and swelling, MS/Extremity: Negative for injury and deformity, Skin: Negative for injury, rash, and discoloration, Psych: Negative for depression, anxiety, suicide ideation, homicidal ideation, and hallucinations, Allergy/Immunology: Negative for hives, rash, and allergies, Endocrine: Negative for neck swelling, polydipsia, polyuria, polyphagia, and marked weight changes, Hematologic/Lymphatic: Negative for swollen nodes, abnormal bleeding, and unusual bruising. 20:59 Neuro: Positive for altered mental status, weakness. Exam: 20:59 Constitutional: This is a well developed, well nourished patient who is awake, alert, gabo and in no acute distress. Head/Face: Normocephalic, atraumatic. Eyes: Pupils equal round and reactive to light, extra-ocular motions intact. Lids and lashes normal. Conjunctiva and sclera are non-icteric and not injected. Cornea within normal limits. Periorbital areas with no swelling, redness, or edema. Neck: Trachea midline, no thyromegaly or masses palpated, and no cervical lymphadenopathy. Supple, full range of motion without nuchal rigidity, or vertebral point tenderness. No Meningismus. Chest/axilla: Normal chest wall appearance and motion. Nontender with no deformity. No lesions are appreciated. Cardiovascular: Regular rate and rhythm with a normal S1 and S2. No gallops, murmurs, or rubs. Normal PMI, no JVD. No pulse deficits. Respiratory: Lungs have equal breath sounds bilaterally, clear to auscultation and percussion. No rales, rhonchi or wheezes noted. No increased work of breathing, no retractions or nasal flaring. Abdomen/GI: Soft, non-tender, with normal bowel sounds. No distension or tympany. No guarding or rebound. No evidence of tenderness throughout. Back: No spinal tenderness. No costovertebral tenderness. Full range of motion. Skin: Warm, dry with normal turgor. Normal color with no rashes, no lesions, and no evidence of cellulitis. MS/ Extremity: Pulses equal, no cyanosis. Neurovascular intact. Full, normal range of motion. 20:59 ENT: Mouth: Lips: cracked, Oral mucosa: dry, Gums: pink, Tongue: is normal, Posterior pharynx: is normal, no acute changes. 20:59 Neuro: Orientation: to person, place, Not oriented to time, situation, Mentation: able to follow commands, slow to respond, Cerebellar function: no acute changes, Motor: moves all fours, Sensation: no obvious gross deficits, appropriate no acute changes, Gait: not tested. Babinski testing is normal, seizure activity, is not displayed by the patient, Abnormal movements: resting tremor. Vital Signs: 20:30 BP 105 / 80; Pulse 77; Resp 17; Temp 97.7; Pulse Ox 100% on R/A; sg 22:30 BP 158 / 109; Pulse 79; Resp 18; Pulse Ox 100% on R/A; 10/24 00:00 BP 143 / 89; Pulse 72; Resp 18; Pulse Ox 97% on R/A; MDM: 10/23 20:47 Patient medically screened. [facility] 20:49 Patient medically screened. [facility] 21:02 Data reviewed: vital signs, nurses notes, lab test result(s), EKG, radiologic studies, [facility] CT scan, plain films. 10/23 20:58 Order name: Basic Metabolic Panel; Complete Time: 22:20 [facility] 10/23 20:58 Order name: CBC with Diff; Complete Time: 22:20 [facility] 10/23 20:58 Order name: LFT's; Complete Time: 22:20 [facility] 10/23 20:58 Order name: Magnesium; Complete Time: 22:20 [facility] 10/23 20:58 Order name: NT PRO-BNP; Complete Time: 22:20 [facility] 10/23 20:58 Order name: PT-INR; Complete Time: 22:20 [facility] 10/23 20:58 Order name: Troponin (emerg Dept Use Only); Complete Time: 22:20 [facility] 10/23 20:58 Order name: Lipase; Complete Time: 22:20 [facility] 10/23 20:58 Order name: Depakote; Complete Time: 22:20 [facility] 10/23 20:58 Order name: Digoxin; Complete Time: 22:20 [facility] 10/23 20:58 Order name: Urine Culture [facility] 10/23 20:58 Order name: Blood Culture Adult (2) [facility] 10/23 23:20 Order name: CBC with Automated Diff [facility] 10/23 23:20 Order name: CBC with Automated Diff [facility] 10/23 20:58 Order name: XRAY Chest (1 view); Complete Time: 22:20 [facility] 10/23 20:58 Order name: CT Traumagram (Head C Spine CAP wo con) [facility] 10/23 20:58 Order name: Pelvis XRAY; Complete Time: 22:20 [facility] 10/23 23:20 Order name: Comprehensive Metabolic Panel [facility] 10/23 23:20 Order name: Comprehensive Metabolic Panel [facility] 10/23 23:20 Order name: Protime (+INR) EDMS 10/23 23:20 Order name: Protime (+INR) [facility] 10/23 23:20 Order name: PTT, Activated Partial Thromb ED[facility] 10/23 23:20 Order name: PTT, Activated Partial Thromb [facility] 10/23 23:20 Order name: Troponin I [facility] 10/23 23:20 Order name: Troponin I [facility] 10/23 23:20 Order name: Troponin I [facility] 10/23 23:20 Order name: Troponin I [facility] 10/23 23:48 Order name: Urine Dipstick--Ancillary (enter results) nd 10/24 00:49 Order name: Urine Dipstick-Ancillary [facility] 10/24 06:40 Order name: Magnesium [facility] 10/23 20:58 Order name: EKG; Complete Time: 20:59 [facility] 10/23 20:58 Order name: Cardiac monitoring; Complete Time: 22:17 [facility] 10/23 20:58 Order name: EKG - Nurse/Tech; Complete Time: 22:47 [facility] 10/23 20:58 Order name: IV Saline Lock; Complete Time: 22:17 [facility] 10/23 20:58 Order name: Labs collected and sent; Complete Time: 22:18 [facility] 10/23 20:58 Order name: O2 Per Protocol; Complete Time: 22:18 [facility] 10/23 20:58 Order name: O2 Sat Monitoring; Complete Time: 22:26 [facility] 10/23 20:59 Order name: Urine Dipstick-Ancillary (obtain specimen); Complete Time: 23:36 [facility] 10/23 21:44 Order name: Hip Right 2 View XRAY [facility] 10/23 23:20 Order name: CONS Pharmacy Consult [facility] 10/23 23:20 Order name: NPO [facility] 10/23 23:39 Order name: Nava; Complete Time: 23:40 [facility] Administered Medications: Discontinued: NS 0.9% 1000 ml IV at 125 ml/hr continuous 21:30 Drug: NS 0.9% 500 ml Route: IV; Rate: bolus; Site: left forearm; sg 22:38 Follow up: Response: No adverse reaction; IV Status: Completed infusion 22:00 Drug: Ativan 1 mg Route: IVP; Site: left forearm; sg 22:41 Follow up: Response: No adverse reaction; RASS: Alert and Calm (0) 22:20 Drug: NS 0.9% 1000 ml Route: IV; Rate: 125 ml/hr; Site: left forearm; sg 22:20 Drug: Thiamine 100 mg Route: IV; Rate: bolus; Site: left forearm; sg 22:37 Follow up: Response: No adverse reaction; IV Status: Completed infusion 22:20 Drug: Rocephin 1 grams Route: IV; Rate: per protocol; Site: left forearm; sg 22:37 Follow up: Response: No adverse reaction; IV Status: Completed infusion 22:28 Not Given (Duplicate Order): NS 0.9% 1000 ml IV at 1 bolus Per protocol; 1000 mL bolus [facility] 22:30 Drug: NS 0.9% 1000 ml Route: IV; Rate: 75 ml/hr; Site: left forearm; sg 22:38 Follow up: Response: No adverse reaction; IV Status: Infusion continued upon admission 10/24 01:05 Follow up: Response: No adverse reaction; IV Status: Infusion continued upon admission 10/23 22:47 Drug: Magnesium Sulfate 1 grams Route: IVPB; Infused Over: 1 hrs; Site: right antecubital; 22:47 Follow up: Response: No adverse reaction; IV Status: Infusion continued upon admission 10/24 01:05 Follow up: Response: No adverse reaction; IV Status: Completed infusion 10/23 23:31 Drug: Geodon 10 mg Route: IM; Site: left deltoid; rv 10/24 01:04 Follow up: Response: No adverse reaction; RASS: Drowsy (-1) Disposition: 10/23/19 22:30 Hospitalization ordered by Huma Willoughby for Inpatient Admission. Preliminary diagnosis are Fall due to bumping against object, Cardiomegaly, Dementia in other diseases classified elsewhere, Weakness, Type 2 diabetes mellitus, Hypomagnesemia, Atrial fibrillation and flutter, Abdominal and pelvic pain - 6.5 cm left adenexal mass, Urinary tract infection, site not specified, Retention of urine, unspecified, Retention of urine. - Bed requested for Telemetry/MedSurg (Inpatient). - Status is Inpatient Admission. bp - Condition is Fair. - Problem is new. - Symptoms have improved. UTI on Admission? Yes Signatures: Dispatcher [employer] EDMS Tatyana Chacon RN RN mw Gay, Steven, RN RN sg Anderson, Corey, MD MD cha Ballard, Brenda, RN RN bb Habalo, Winsy Ramiro Adler RN RN bp Vicente, Ronaldo RN RN rv Corrections: (The following items were deleted from the chart) 10/23 22:33 22:30 Hospitalization Ordered by Huma Willoughby MD for Inpatient Admission. Preliminary mw diagnosis is Fall due to bumping against object; Cardiomegaly; Dementia in other diseases classified elsewhere; Weakness; Type 2 diabetes mellitus; Hypomagnesemia. Bed requested for Telemetry/MedSurg (Inpatient). Status is Inpatient Admission. Condition is Fair. Problem is new. Symptoms have improved. UTI on Admission? Yes. [facility] 22:34 22:33 10/23/2019 22:30 Hospitalization Ordered by Huma Willoughby MD for Inpatient mw Admission. Preliminary diagnosis is Fall due to bumping against object; Cardiomegaly; Dementia in other diseases classified elsewhere; Weakness; Type 2 diabetes mellitus; Hypomagnesemia. Bed requested for [facility] ER HOLD. Status is Inpatient Admission. Condition is Fair. Problem is new. Symptoms have improved. UTI on Admission? Yes. 23:39 22:34 10/23/2019 22:30 Hospitalization Ordered by Huma Willoughby MD for Inpatient gabo Admission. Preliminary diagnosis is Fall due to bumping against object; Cardiomegaly; Dementia in other diseases classified elsewhere; Weakness; Type 2 diabetes mellitus; Hypomagnesemia. Bed requested for Telemetry/MedSurg (Inpatient). Status is Inpatient Admission. Condition is Fair. Problem is new. Symptoms have improved. UTI on Admission? Yes. 23:47 23:39 10/23/2019 22:30 Hospitalization Ordered by Huma Willoughby MD for Inpatient gabo Admission. Preliminary diagnosis is Fall due to bumping against object; Cardiomegaly; Dementia in other diseases classified elsewhere; Weakness; Type 2 diabetes mellitus; Hypomagnesemia; Atrial fibrillation and flutter; Abdominal and pelvic pain - 6.5 cm left adenexal mass. Bed requested for Telemetry/MedSurg (Inpatient). Status is Inpatient Admission. Condition is Fair. Problem is new. Symptoms have improved. UTI on Admission? Yes. [facility] 23:47 23:47 10/23/2019 22:30 Hospitalization Ordered by Huma Willoughby MD for Inpatient gabo Admission. Preliminary diagnosis is Fall due to bumping against object; Cardiomegaly; Dementia in other diseases classified elsewhere; Weakness; Type 2 diabetes mellitus; Hypomagnesemia; Atrial fibrillation and flutter; Abdominal and pelvic pain - 6.5 cm left adenexal mass; Urinary tract infection, site not specified. Bed requested for Telemetry/MedSurg (Inpatient). Status is Inpatient Admission. Condition is Fair. Problem is new. Symptoms have improved. UTI on Admission? Yes. [facility] 23:52 23:47 10/23/2019 22:30 Hospitalization Ordered by Huma Willoughby MD for Inpatient bb Admission. Preliminary diagnosis is Fall due to bumping against object; Cardiomegaly; Dementia in other diseases classified elsewhere; Weakness; Type 2 diabetes mellitus; Hypomagnesemia; Atrial fibrillation and flutter; Abdominal and pelvic pain - 6.5 cm left adenexal mass; Urinary tract infection, site not specified; Retention of urine, unspecified; Retention of urine. Bed requested for Telemetry/MedSurg (Inpatient). Status is Inpatient Admission. Condition is Fair. Problem is new. Symptoms have improved. UTI on Admission? Yes. [facility] 10/24 06:46 10/23 23:52 10/23/2019 22:30 Hospitalization Ordered by Huma Willoughby MD for Inpatient mw Admission. Preliminary diagnosis is Fall due to bumping against object; Cardiomegaly; Dementia in other diseases classified elsewhere; Weakness; Type 2 diabetes mellitus; Hypomagnesemia; Atrial fibrillation and flutter; Abdominal and pelvic pain - 6.5 cm left adenexal mass; Urinary tract infection, site not specified; Retention of urine, unspecified; Retention of urine. Bed requested for [facility] ER HOLD. Status is Inpatient Admission. Condition is Fair. Problem is new. Symptoms have improved. UTI on Admission? Yes. bb 10/24 08:31 06:46 10/23/2019 22:30 Hospitalization Ordered by Huma Willoughby MD for Inpatient bp Admission. Preliminary diagnosis is Fall due to bumping against object; Cardiomegaly; Dementia in other diseases classified elsewhere; Weakness; Type 2 diabetes mellitus; Hypomagnesemia; Atrial fibrillation and flutter; Abdominal and pelvic pain - 6.5 cm left adenexal mass; Urinary tract infection, site not specified; Retention of urine, unspecified; Retention of urine. Bed requested for Telemetry/MedSurg (Inpatient). Status is Inpatient Admission. Condition is Fair. Problem is new. Symptoms have improved. UTI on Admission? Yes. mw
--- NOTE | 2019-10-23 22:32 | ER ---
Nurse's Notes [facility] Name: Vaishali Leary Age: 74 yrs Sex: Female : 1945 Arrival Date: 10/23/2019 Time: 20:27 Bed 20 Private MD: Diagnosis: Fall due to bumping against object;Cardiomegaly;Dementia in other diseases classified elsewhere;Weakness;Type 2 diabetes mellitus;Hypomagnesemia;Atrial fibrillation and flutter;Abdominal and pelvic pain-6.5 cm left adenexal mass;Urinary tract infection, site not specified;Retention of urine, unspecified;Retention of urine Presentation: 10/23 20:30 Presenting complaint: EMS states: pt reports she was transferring from her wheelchair sg to the bed when she became unbalanced and fell to the ground from the wheelchair while standing up, pt reports earlier today she had a fall from a seated position while in her wheelchair but denied any injury from the fall today. Transition of care: patient was not received from another setting of care. Onset of symptoms was October 23, 2019. Risk Assessment: Do you want to hurt yourself or someone else? Patient reports no desire to harm self or others. Initial Sepsis Screen: Does the patient meet any 2 criteria? No. Patient's initial sepsis screen is negative. Does the patient have a suspected source of infection? No. Patient's initial sepsis screen is negative. Care prior to arrival: None. 20:30 Method Of Arrival: EMS: [facility] sg 20:30 Acuity: AIRAM 3 sg Historical: - Allergies: 20:29 Glipizide; sg 20:29 Sulfa (Sulfonamide Antibiotics); sg 20:29 Iodine; sg - PMHx: 20:29 Atrial Fib; CHF; COPD; delirium; Dementia; Diabetes - NIDDM; Hyperlipidemia; sg Hypothyroidism; - Immunization history:: Adult Immunizations up to date. - Social history:: Smoking status: unknown. - Ebola Screening: : Patient negative for fever greater than or equal to 101.5 degrees Fahrenheit, and additional compatible Ebola Virus Disease symptoms Patient denies exposure to infectious person Patient denies travel to an Ebola-affected area in the 21 days before illness onset No symptoms or risks identified at this time. Screenin:30 Abuse screen: Denies threats or abuse. Denies injuries from another. Nutritional wh screening: No deficits noted. Tuberculosis screening: No symptoms or risk factors identified. Fall Risk None identified. Assessment: 20:30 General: Appears in no apparent distress. well groomed, well developed, well nourished, sg Behavior is cooperative. Pain: Complains of pain in right hip. Neuro: Level of Consciousness is awake, confused, Oriented to person, Speech is normal, Facial symmetry appears normal. Cardiovascular: Patient's skin is warm and dry. Chest pain is denied. Respiratory: Airway is patent Respiratory effort is even, unlabored, Respiratory pattern is regular, symmetrical. GI: No signs and/or symptoms were reported involving the gastrointestinal system. : No signs and/or symptoms were reported regarding the genitourinary system. EENT: No signs and/or symptoms were reported regarding the EENT system. Derm: Skin is pink, warm \T\ dry. Musculoskeletal: Circulation, motion, and sensation intact. Range of motion: intact in all extremities. 20:32 Reassessment: a trauma alert has been called. sg 20:46 Reassessment: pt reports a few months ago she began having bleeding monthly from her sg vaginal area. denied any injury at this time, ERP notified. 20:50 Reassessment: Patient appears in no apparent distress at this time. sg 21:42 Reassessment: Patient appears in no apparent distress at this time. Patient and/or family updated on plan of care and expected duration. Pain level reassessed. xray at bedside at this time. 22:30 Reassessment: Patient appears in no apparent distress at this time. Patient and/or family updated on plan of care and expected duration. Pain level reassessed. 10/24 00:00 Reassessment: Patient appears in no apparent distress at this time. No changes from previously documented assessment. Patient and/or family updated on plan of care and expected duration. Pain level reassessed. Vital Signs: 10/23 20:30 BP 105 / 80; Pulse 77; Resp 17; Temp 97.7; Pulse Ox 100% on R/A; sg 22:30 BP 158 / 109; Pulse 79; Resp 18; Pulse Ox 100% on R/A; 10/24 00:00 BP 143 / 89; Pulse 72; Resp 18; Pulse Ox 97% on R/A; ED Course: 10/23 20:27 Patient arrived in ED. sg 20:27 Arm band placed on. EKG completed in triage. Results shown to MD. sg 20:32 Triage completed. sg 20:45 Reynaldo Banks, RN is Primary Nurse. sg 20:48 Nathaniel Anderson MD is Attending Physician. gabo 21:30 First set of blood cultures drawn by me. Inserted saline lock: 22 gauge in left sg forearm, using aseptic technique. Blood collected. 21:30 Second set of blood cultures drawn by me. Missed attempt(s): 22 gauge in right forearm. sg Bleeding controlled, band aid applied, catheter tip intact. 22:02 XRAY Chest (1 view) In Process Unspecified. EDMS 22:02 Pelvis XRAY In Process Unspecified. EDMS 22:25 CT Traumagram (Head C Spine CAP wo con) In Process Unspecified. EDMS 22:29 Huma Willoughby MD is Hospitalizing Provider. gabo 22:30 Patient has correct armband on for positive identification. Placed in gown. Bed in low wh position. Call light in reach. Side rails up X 1. learning center instructor on. Pulse ox on. NIBP on. 22:31 Hip Right 2 View XRAY In Process Unspecified. EDMS 22:37 Anh Leblanc is Primary Nurse. 23:15 Door closed. Lights dimmed. Warm blanket given. Pillow given. Head of bed lowered. mw2 23:37 Nava cath inserted, using sterile technique, 18 Fr., by ca, balloon inflated, to mw2 gravity drainage, urine specimen collected. 10/24 00:00 No provider procedures requiring assistance completed. Patient admitted, IV remains in wh place. 07:01 Primary Nurse role handed off by Anh Leblanc bp 07:01 Raimro Adler, RN is Primary Nurse. bp Administered Medications: Discontinued: NS 0.9% 1000 ml IV at 125 ml/hr continuous 10/23 21:30 Drug: NS 0.9% 500 ml Route: IV; Rate: bolus; Site: left forearm; sg 22:38 Follow up: Response: No adverse reaction; IV Status: Completed infusion 22:00 Drug: Ativan 1 mg Route: IVP; Site: left forearm; sg 22:41 Follow up: Response: No adverse reaction; RASS: Alert and Calm (0) 22:20 Drug: NS 0.9% 1000 ml Route: IV; Rate: 125 ml/hr; Site: left forearm; 22:20 Drug: Thiamine 100 mg Route: IV; Rate: bolus; Site: left forearm; sg 22:37 Follow up: Response: No adverse reaction; IV Status: Completed infusion :20 Drug: Rocephin 1 grams Route: IV; Rate: per protocol; Site: left forearm; sg 22:37 Follow up: Response: No adverse reaction; IV Status: Completed infusion 22:28 Not Given (Duplicate Order): NS 0.9% 1000 ml IV at 1 bolus Per protocol; 1000 mL bolus [facility] 22:30 Drug: NS 0.9% 1000 ml Route: IV; Rate: 75 ml/hr; Site: left forearm; sg 22:38 Follow up: Response: No adverse reaction; IV Status: Infusion continued upon admission 10/24 01:05 Follow up: Response: No adverse reaction; IV Status: Infusion continued upon admission 10/23 22:47 Drug: Magnesium Sulfate 1 grams Route: IVPB; Infused Over: 1 hrs; Site: right antecubital; 22:47 Follow up: Response: No adverse reaction; IV Status: Infusion continued upon admission 10/24 01:05 Follow up: Response: No adverse reaction; IV Status: Completed infusion 10/23 23:31 Drug: Geodon 10 mg Route: IM; Site: left deltoid; rv 10/24 01:04 Follow up: Response: No adverse reaction; RASS: Drowsy (-1) Outcome: 10/23 22:30 Decision to Hospitalize by Provider. [facility] 10/24 00:00 Admitted to ER Hold. Please see [facility] for further documentation. Condition: stable Instructed on the need for admit. 08:29 Admitted to Med/surg accompanied by tech, via stretcher, room 405, with chart, Report bp called to LATOSHA MOSQUEDA 08:31 Patient left the ED. bp Signatures: Dispatcher [employer] EDMS Reynaldo Banks, RN RN Nathaniel Joy MD MD cha Habalo, Winsy Ramiro Adler RN PANDA Vira Stevens 2 Clif Ledesma RN RN rv
[2019-10-23] MEDS ORDERED: MAGNESIUM SULFATE 1 gm IVPB 1 GM/100 ML BAG IV ONE (22:43)
[2019-10-23] MEDS ORDERED: ONDANSETRON 4 MG/2 ML VIAL IV PRN (23:16)
[2019-10-23] MEDS ORDERED: ACETAMINOPHEN 500 MG TAB PO PRN (23:16)
[2019-10-23] MEDS ORDERED: ZIPRASIDONE MESYLA 20 MG/VIAL IM ONE (23:28)
[2019-10-23] MEDS: NA CHLORIDE 0.9% 1,000 ML IV SCH (23:45)
[2019-10-24 00:49] LABS: Urine Blood 2+ (NEG); Urine Glucose NEGATIVE (NEG); Urine Protein 1+ (NEG); Urine Specific Gravity 1.015 (1.005-1.030)
[2019-10-24] MEDS ORDERED: NA CHLORIDE 0.9% 1,000 ML ONE (03:55)
[2019-10-24 04:18] VITALS: BMI 26.6
--- NOTE | 2019-10-24 06:05 | P.HP ---
Certification for Inpatient Patient admitted to: Observation With expected LOS: <2 Midnights Patient will require the following post-hospital care: None Practitioner: I am a practitioner with admitting privileges, knowledge of patient current condition, hospital course, and medical plan of care. Services: Services provided to patient in accordance with Admission requirements found in Title 42 Section 412.3 of the Code of Federal Regulations Patient History Date of Service: 10/24/19 Reason for admission: Status post fall with altered mentation History of Present Illness: patient is a 74-year-old female who comes into the hospital from nursing facility. She was transferring from her wheelchair to her bed when she became a ataxic and fell to the ground. She had fallen from a seated position earlier in the day but did not have any injury. She has been in 2 if the [facility] on numerous occasions over the past year. She [facility]. At that time she was having paranoid and delusional thoughts. She was treated and transferred to the correction. She came in initially because she was having some mild hip pain but that is resolved. Her workup in the ER including a trauma get a.m. has been negative. Patient also suddenly had a urinary tract infection. Patient will be treated with IV antibiotic therapy. Continue with IV hydration and will admit patient to the floor. Allergies glipizide Allergy (Verified 07/30/19 02:23) Itching iodine Allergy (Verified 07/30/19 02:23) Itching Sulfa (Sulfonamide Antibiotics) Allergy (Verified 07/30/19 02:23) Itching Home Medications: Acetaminophen [Tylenol] 650 mg PO Q6HP PRN 07/30/19 Apixaban [Eliquis] 5 mg PO BID 07/30/19 Atorvastatin Calcium [Lipitor*] 20 mg PO BEDTIME 07/30/19 Digoxin [Lanoxin*] 125 mcg PO DAILY 07/30/19 Divalproex ER [Depakote *ER] 250 mg PO TID 07/30/19 Duloxetine HCl [Cymbalta] 60 mg PO DAILY 07/30/19 Furosemide [Lasix*] 40 mg PO DAILY 07/30/19 Gabapentin [Neurontin*] 100 mg PO BID 07/30/19 Isosorbide Dinitrate 30 mg PO DAILY 07/30/19 LORazepam [Ativan*] 1 mg PO BID 07/30/19 Levothyroxine Sodium 200 mcg PO DAILY 07/30/19 Lidocaine [Lidocaine Pain Relief] 1 each TP BEDTIME 07/30/19 Metformin HCl [Glucophage*] 500 mg PO BIDWM 07/30/19 Nicotine [Nicoderm*] 1 patch TD DAILY 07/30/19 Nystatin Cream [Mycostatin 100MU/Gm Cream*] 1 appl TOP BID 07/30/19 Quetiapine [Seroquel*] 200 mg PO BEDTIME 07/30/19 Sitagliptin Phosphate [Januvia*] 50 mg PO DAILY 07/30/19 fentaNYL [Fentanyl] 1 each TD SEECOM 07/30/19 Arformoterol Tartrate [Brovana] 15 mcg NEB BIDRESP [email or web address] 08/04/19 - Past Medical/Surgical History Has patient received pneumonia vaccine in the past: Yes Diabetic: No -: Depression -: Psychosis -: Atrial fibrillation -: Hypertension -: COPD -: Abdominal aneurysm -: Diabetes type 2 -: CHF -: Dyslipidemia Past Surgical History: Unable to obtain - Family History Father Family History: Reviewed- Non-Contributory - Social History Smoking Status: Never smoker Place of Residence: Longterm Review of Systems is unable to be obtained Physical Examination - Vital Signs Temperature: 98.2 F Blood Pressure: 134/87 Pulse: 86 Respirations: 16 Pulse Ox (%): 97 - Physical Exam General: Alert, In no apparent distress, Confused, Delirious HEENT: Atraumatic, PERRLA, Mucous membr. moist/pink, EOMI, Sclerae nonicteric Neck: Supple, 2+ carotid pulse no bruit, No LAD, Without JVD or thyroid abnormality Respiratory: Clear to auscultation bilaterally, Normal air movement Cardiovascular: Regular rate/rhythm, Normal S1 S2, Systolic murmur Gastrointestinal: Normal bowel sounds, Soft and benign, Non-distended, No tenderness, No rebound, No guarding Musculoskeletal: No clubbing, No swelling, No tenderness Integumentary: No rashes Neurological: Normal speech, Normal tone, Sensation intact, Cranial nerves 3-12 intact, Normal affect, Abnormal gait, Abnormal strength Lymphatics: No axilla or inguinal lymphadenopathy - Studies Laboratory Data (last 24 hrs) 10/23/19 21:30: PT 16.0 H, INR 1.37 10/23/19 21:30: WBC 9.1, Hgb 10.7 L, Hct 32.3 L, Plt Count 237 10/23/19 21:30: Sodium 137, Potassium 3.6, BUN 16, Creatinine 0.89, Glucose 139 H, Magnesium 1.3 L* D, Total Bilirubin 0.4, AST 20, ALT 10 L, Alkaline Phosphatase 91, Lipase 24 L Assessment & Plan - Problems (Diagnosis) (1) Altered awareness, transient Current Visit: Yes Status: Acute (2) Status post fall Current Visit: Yes Status: Acute (3) Altered mental status Current Visit: No Status: Acute Qualifiers: (4) Bladder retention Current Visit: No Status: Acute (5) Atrial fibrillation Current Visit: No Status: Chronic Qualifiers: (6) CHF (congestive heart failure) Current Visit: No Status: Chronic Qualifiers: (7) COPD (chronic obstructive pulmonary disease) Current Visit: No Status: Chronic Qualifiers: (8) DM2 (diabetes mellitus, type 2) Current Visit: No Status: Chronic (9) Dementia with behavioral problem Current Visit: No Status: Chronic Qualifiers: (10) Peripheral arterial disease Current Visit: No Status: Chronic - Plan Plan: 1. Physical therapy evaluation 2. Gentle hydration 3. IV antibiotics 4. Pain control 5. Resume home medications 6. Strict blood pressure and blood sugar control 7. Patient continues to be on Seroquel and Depakote for behavioral disturbance 8. GI and DVT prophylaxis Discharge Plan: Home Plan to discharge in: Greater than 2 days - Advance Directives Does patient have a Living Will: No Does patient have a Durable POA for Healthcare: No - Code Status/Comfort Care Code Status Assessed: Yes Code Status: Full Code Critical Care: No Time Spent Managing PTS Care (In Minutes): 45
[2019-10-24 06:15] LABS: Absolute Lymphocytes (CBC) 2.7 K/uL (0.7-4.9); Basophils % 1.5 % (0-1.3); Hematocrit 29.9 % (36.0-45.0); Lymphocytes % 38.2 % (15.3-44.8); MPV 8.3 fL (7.6-11.3); RBC Red Blood Cell Count 3.07 M/uL (3.86-4.86)
[2019-10-24 06:36] LABS: Protime INR 1.23
[2019-10-24 06:38] LABS: Albumin 1.8 g/dL (3.4-5.0); Bilirubin Total 0.3 mg/dL (0.2-1.0); Potassium 3.1 mmol/L (3.5-5.1); Protein, Total 5.7 g/dL (6.4-8.2); Troponin I 0.03 ng/mL (0.0-0.045)
--- NOTE | 2019-10-24 08:13 | RAD REPORT ---
EXAM DESCRIPTION: RAD - Hip Right 2 View - 10/23/2019 10:30 pm CLINICAL HISTORY: PAIN COMPARISON: Hip Right 2 View dated 07/30/2019 FINDINGS: Mild osteoarthritic changes involve the right hip. No fracture, dislocation or AVN. Surgic al clips are present in right groin.
--- NOTE | 2019-10-24 08:47 | EKG ---
Test Date: 2019-10-23 Test Time: 22:45:25 Chemist Assistant: DEENA MEASUREMENT RESULTS: Intervals: Rate: 76 CT: QRSD: 74 QT: 302 QTc: 339 [place]: P: CT: QRS: 33 T: 264 INTERPRETIVE STATEMENTS: Atrial fibrillation Low voltage QRS Septal infarct, age undetermined ST & T wave abnormality, consider inferior ischemia Abnormal ECG Compared to ECG 08/02/2019 11:18:15 Myocardial infarct finding still present Electronically Signed On 10-24-19 08:46:15 [employer]STITUTE CROSSING GUARD by Freddie Mcclain
[2019-10-24] MEDS: NA CHLORIDE 0.9% 1,000 ML IV SCH ×3 (09:07→17:35)
[2019-10-24] MEDS: DIGOXIN 0.125 MG TABLET PO SCH (10:00)
[2019-10-24] MEDS: DIVALPROEX ER 250 MG TAB PO SCH ×3 (10:00→20:27)
[2019-10-24] MEDS: APIXABAN 5 MG TABLET PO SCH ×2 (10:00→20:27)
[2019-10-24] MEDS: LEVOTHYROXINE SOD 0.1 MG TAB PO SCH (10:00)
[2019-10-24] MEDS: DULOXETINE 30 MG CAP PO SCH (10:00)
[2019-10-24] MEDS: ISOSORBIDE DINIT 20 MG TAB PO SCH (10:00)
[2019-10-24] MEDS: GABAPENTIN 100 MG CAP PO SCH ×2 (10:10→20:27)
[2019-10-24] MEDS: FUROSEMIDE 40 MG TABLET PO SCH (10:10)
[2019-10-24] MEDS: ARFORMOTEROL TARTRATE 15 MCG/2 ML VIAL.NEB NEB SCH ×2 (10:30→21:05)
[2019-10-24] MEDS: MORPHINE 2 MG/ML SYR IV PRN ×2 (12:22→18:58)
--- NOTE | 2019-10-24 12:50 | RAD REPORT ---
EXAM DESCRIPTION: Head C Spine Cap Wo Con CLINICAL HISTORY: 74-year-old female with pain. COMPARISON: 07/29/2019. TECHNIQUE: CT brain without contrast. This exam was performed according to our departmental dose opt imization program which includes use of automated exposure control, adjustment of the mA and/or kV ac cording to patient size and/or use of iterative reconstruction technique. FINDINGS: Multifocal regions of patchy hypoattenuation are present in a subcortical and periventricu lar deep white matter distribution, nonspecific; however, most likely represent small vessel ischemic disease, age indeterminate. Gliosis and encephalomalacia of the RIGHT temporal parietal lobe compati ble with sequela of prior infarction. Linear subcentimeter focus of hypoattenuation within the LEFT s bartolome cerebellum compatible with sequela of prior infarction. The ventricles, and sulci are enlarged compatible with underlying volume loss. The jonas-white matte r differentiation is preserved. Empty sella otherwise the midline structures are within normal limits . There is no mass effect, midline shift, intra- or extra-axial fluid collection/acute hemorrhage. The osseous structures are unremarkable. The paranasal sinuses and mastoid air cells are clear. IMPRESSION: 1. No acute intracranial abnormalities. Nonspecific white matter change most likely sm all vessel ischemic disease, age indeterminate. 2. CT is insensitive for early evaluation of acute stroke. If there is clinical concern for acute ischemia, an MRI may be considered. TECHNIQUE: Cervical spine CT was performed without contrast. Multiplanar reformatted images were pro vided. This exam was performed according to our departmental dose optimization program which includes use of automated exposure control, adjustment of the mA and/or kV according to patient size and/or u se of iterative reconstruction technique. COMPARISON: None. FINDINGS: Trace anterolisthesis of C3 relative to C4 suspected secondary to degenerative facet kitchen e at that level. There is normal alignment of the cervical spine without acute fracture or subluxation. The facets are normal in alignment bilaterally. The posterior elements including the spinous processes are intact. Straightening of the cervical spine which may be secondary to positioning for the examination. Morphology and attenuation of the vertebral bodies and intervertebral disk spaces is within normal li mits. Multilevel posterior osseous spurring results in neuroforaminal narrowing throughout the cervical spi ne. The pre-and paravertebral soft tissues are within normal limits. IMPRESSION: 1. Straightening of the cervical spine which may be secondary to positioning for the exa mination versus spasm. 2. No fracture or acute subluxation. EXAMINATION: CT of the chest, abdomen and pelvis was performed without intravenous or oral contrast. Multiplanar reformatted images were provided. This exam was performed according to our departmental dose optimization program which includes use of automated exposure control, adjustment of the mA and/ or kV according to patient size and/or use of iterative reconstruction technique. FINDINGS: Evaluation of solid organ pathology is limited secondary to lack of intravenous contrast. Examination findings are further limited by motion artifact. Within these limitations, the following observations are made. Chest: Motion limited evaluation through the lungs reveals LEFT lower lobe trace pleural effusion and atelectasis versus consolidation. No additional focal opacity. No gross pneumothoraces or right-side d pleural effusion. Bilateral linear basilar opacities suggesting subsegmental atelectasis versus con solidation. Heart size is within normal limits. No pericardial effusion. Abdomen and pelvis: The liver, gallbladder, pancreas, spleen, bilateral kidneys and bilateral adrenal glands are within normal limits. The vessels reveal dense atherosclerotic calcification including the thoracic, abdominal pelvic aorta . Focal dilation of the aorta just below the level of the superior mesenteric artery measures 3.8 cm, (series 401, image 61). Additional focal infrarenal aortic dilation measures 3.8 cm, (series 401, im age 72) No abdominopelvic lymph nodes are noted to be pathologically enlarged by CT measurement criteria. The bowel is within normal limits without abnormal bowel wall thickness or bowel dilation. Diverticul ar disease without findings to suggest diverticulitis. No free air. No free abdominopelvic fluid collections. The appendix is not identified. Enlarged cysti c type structure is identified at the level of the LEFT adnexa measuring up to 6.5 cm. The osseous structures reveal degenerative change. IMPRESSION: 1. No specific acute intra-abdominal findings are noted to suggest etiology of the patie nt's abdominal pain. 2. Multilobulated and densely calcified abdominal aortic aneurysm measuring up to 3.8 cm. Best practi ce guidelines recommend follow-up evaluation every two years. 3. Trace LEFT pleural effusion and subsegmental atelectasis versus consolidation. 4. 6.5 cm adnexal cyst. Best practice guidelines recommend prompt follow-up sonography. 5. Diverticular disease without findings to suggest diverticulitis. Electronically signed by: Nevin Franco MD 10/23/2019 11:21 PM EMPLOYEE RELATIONS MANAGER Due to temporary technical issues with the PACS/Fluency reporting system, reports are being signed by the in house radiologist as a courtesy to ensure prompt reporting. The interpreting radiologist is f ully responsible for the content of the report.
--- NOTE | 2019-10-24 15:08 | RAD REPORT ---
EXAM DESCRIPTION: RAD - Knee Right 2 View - 10/24/2019 3:01 pm CLINICAL HISTORY: Right knee pain FINDINGS: No fracture or dislocation is seen. Osteoporosis. Marked osteoarthritis lateral compartment consisting joint space narrowing and osteophy jose.
[2019-10-24] MEDS: ATORVASTATIN 20 MG TAB PO SCH (20:27)
[2019-10-24] MEDS: QUETIAPINE 100MG TAB PO SCH (20:27)
[2019-10-25] MEDS: NA CHLORIDE 0.9% 1,000 ML IV SCH (02:25)
[2019-10-25 05:13] LABS: Absolute Lymphocytes (CBC) 2.2 K/uL (0.7-4.9); Basophils % 0.8 % (0-1.3); Hematocrit 29.8 % (36.0-45.0); Lymphocytes % 30.7 % (15.3-44.8); MPV 8.1 fL (7.6-11.3); RBC Red Blood Cell Count 3.08 M/uL (3.86-4.86)
[2019-10-25 05:33] LABS: BUN Blood Urea Nitrogen 12 mg/dL (7-18); Bicarbonate 33 mmol/L (21-32); Glucose Level 98 mg/dL (74-106); Magnesium 1.7 mg/dL (1.8-2.4); Potassium 3.2 mmol/L (3.5-5.1); Sodium Level 143 mmol/L (136-145); Troponin I 0.02 ng/mL (0.0-0.045)
[2019-10-25] MEDS: ARFORMOTEROL TARTRATE 15 MCG/2 ML VIAL.NEB NEB SCH ×2 (07:50→19:40)
[2019-10-25] MEDS: ISOSORBIDE DINIT 20 MG TAB PO SCH (08:47)
[2019-10-25] MEDS: APIXABAN 5 MG TABLET PO SCH ×2 (08:47→19:52)
[2019-10-25] MEDS: FUROSEMIDE 40 MG TABLET PO SCH (08:48)
[2019-10-25] MEDS: DIVALPROEX ER 250 MG TAB PO SCH ×3 (08:48→19:52)
[2019-10-25] MEDS: LEVOTHYROXINE SOD 0.1 MG TAB PO SCH (08:48)
[2019-10-25] MEDS: DULOXETINE 30 MG CAP PO SCH (08:48)
[2019-10-25] MEDS: DIGOXIN 0.125 MG TABLET PO SCH (08:48)
[2019-10-25] MEDS: GABAPENTIN 100 MG CAP PO SCH ×2 (08:52→19:52)
[2019-10-25] MEDS ORDERED: MAGNESIUM SULFATE 1 gm IVPB 1 GM/100 ML BAG IV ONE (09:00)
[2019-10-25] MEDS: MORPHINE 2 MG/ML SYR IV PRN ×2 (10:07→17:19)
--- NOTE | 2019-10-25 15:23 | P.PN ---
Subjective Date of Service: 10/25/19 Primary Care Provider: retirement Chief Complaint: Status post fall with altered mentation Subjective: Improving, Demented Physical Examination - Vital Signs Temperature: 96.0 F Blood Pressure: 138/78 Pulse: 71 Respirations: 16 Pulse Ox (%): 93 - Physical Exam General: Alert, Demented HEENT: Atraumatic Neck: Supple Respiratory: Clear to auscultation bilaterally, Normal air movement Cardiovascular: Irregular heart rate/rhythm (AFib rate controlled) Gastrointestinal: Normal bowel sounds, Soft and benign, Non-distended Neurological: Dementia - Studies Microbiology Data (last 24 hrs): 10/23/19 21:15 Blood - Blood Anaerobic Blood Culture - Final Medications List Reviewed: Yes Assessment & Plan Discharge Plan: [facility] Plan to discharge in: 24 Hours Physician Review Additional Text: Impression: UTI Status post fall with history of falls Alzheimer's dementia, moderate to severe Hypertension CHF Atrial fibrillation on chronic anti coagulation therapy COPD Plan: UTI: Await urine culture results. Will start Rocephin. Anticipate discharge once urine culture results obtained. Likely discharge tomorrow back to the correction. Advanced directives address with daughter yesterday. Patient is do not resuscitate. Status post fall with history of falls: Continue to work with physical therapy. No fracture noted. Alzheimer's dementia, moderate to severe: Continue with correction medication. Hypertension: Continue medication. CHF: Continue medication and 1500 cc per day fluid restriction. Atrial fibrillation on chronic anti coagulation therapy: Continue with medication COPD: Continue with medication. Time Spent Managing Pts Care (In Minutes): 55
[2019-10-25] MEDS ORDERED: CEFTRIAXONE/SWI 1gm 1 GM/10 ML SYR IVP SCH (17:00)
[2019-10-25] MEDS: ATORVASTATIN 20 MG TAB PO SCH (19:52)
[2019-10-25] MEDS: QUETIAPINE 100MG TAB PO SCH (19:52)
[2019-10-26 04:29] LABS: Absolute Lymphocytes (CBC) 2.4 K/uL (0.7-4.9); Basophils % 1.3 % (0-1.3); Hematocrit 29.1 % (36.0-45.0); Lymphocytes % 36.1 % (15.3-44.8); MPV 8.5 fL (7.6-11.3); RBC Red Blood Cell Count 2.98 M/uL (3.86-4.86)
[2019-10-26 04:41] LABS: BUN Blood Urea Nitrogen 12 mg/dL (7-18); Bicarbonate 34 mmol/L (21-32); Glucose Level 106 mg/dL (74-106); Magnesium 1.7 mg/dL (1.8-2.4); Potassium 3.3 mmol/L (3.5-5.1); Sodium Level 141 mmol/L (136-145); Troponin I < 0.02 ng/mL (0.0-0.045)
[2019-10-26] MEDS ORDERED: MAGNESIUM SULFATE 1 gm IVPB 1 GM/100 ML BAG IV ONE (05:42)
[2019-10-26] MEDS: ARFORMOTEROL TARTRATE 15 MCG/2 ML VIAL.NEB NEB SCH (08:05)
[2019-10-26] MEDS ORDERED: Levofloxacin500mg IV 500 MG/100 ML BAG IV SCH (09:00)
[2019-10-26] MEDS: GABAPENTIN 100 MG CAP PO SCH (09:04)
[2019-10-26] MEDS: DULOXETINE 30 MG CAP PO SCH (09:04)
[2019-10-26] MEDS: LEVOTHYROXINE SOD 0.1 MG TAB PO SCH (09:04)
[2019-10-26] MEDS: DIVALPROEX ER 250 MG TAB PO SCH ×2 (09:05→13:09)
[2019-10-26] MEDS: DIGOXIN 0.125 MG TABLET PO SCH (09:05)
[2019-10-26] MEDS: FUROSEMIDE 40 MG TABLET PO SCH (09:05)
[2019-10-26] MEDS: APIXABAN 5 MG TABLET PO SCH (09:05)
[2019-10-26 09:13] VITALS: O2SAT 93
[2019-10-26] MEDS: ISOSORBIDE DINIT 20 MG TAB PO SCH (09:20)
[2019-10-26] MEDS: MORPHINE 2 MG/ML SYR IV PRN (09:47)
--- NOTE | 2019-10-26 10:51 | P.DS ---
Admission Date: 10/23/19 Discharge Date: 10/26/19 Primary Care Provider: [facility] Disposition: TRANSFER TO INTERMEDIATE Discharge Condition: GOOD Reason for Admission: Status post fall with altered mentation Consultations: none Procedures: Ct Scan: IMPRESSION: 1. No acute intracranial abnormalities. Nonspecific white matter change most likely small vessel ischemic disease, age indeterminate. 2. CT is insensitive for early evaluation of acute stroke. If there is clinical concern for acute ischemia, . TECHNIQUE: Cervical spine CT was performed without contrast. Multiplanar reformatted images were provided. This exam was performed according to our departmental dose optimization program which includes use of automated exposure control, adjustment of the mA and/or kV according to patient size and/or use of iterative reconstruction technique. COMPARISON: None. FINDINGS: Trace anterolisthesis of C3 relative to C4 suspected secondary to degenerative facet change at that level. There is normal alignment of the cervical spine without acute fracture or subluxation. The facets are normal in alignment bilaterally. The posterior elements including the spinous processes are intact. Straightening of the cervical spine which may be secondary to positioning for the examination. Morphology and attenuation of the vertebral bodies and intervertebral disk spaces is within normal limits. Multilevel posterior osseous spurring results in neuroforaminal narrowing throughout the cervical spine. The pre-and paravertebral soft tissues are within normal limits. IMPRESSION: 1. Straightening of the cervical spine which may be secondary to positioning for the examination versus spasm. 2. No fracture or acute subluxation. EXAMINATION: CT of the chest, abdomen and pelvis was performed without intravenous or oral contrast. Multiplanar reformatted images were provided. This exam was performed according to our departmental dose optimization program which includes use of automated exposure control, adjustment of the mA and/or kV according to patient size and/or use of iterative reconstruction technique. FINDINGS: Evaluation of solid organ pathology is limited secondary to lack of intravenous contrast. Examination findings are further limited by motion artifact. Within these limitations, the following observations are made. Chest: Motion limited evaluation through the lungs reveals LEFT lower lobe trace pleural effusion and atelectasis versus consolidation. No additional focal opacity. No gross pneumothoraces or right-sided pleural effusion. Bilateral linear basilar opacities suggesting subsegmental atelectasis versus consolidation. Heart size is within normal limits. No pericardial effusion. Abdomen and pelvis: The liver, gallbladder, pancreas, spleen, bilateral kidneys and bilateral adrenal glands are within normal limits. The vessels reveal dense atherosclerotic calcification including the thoracic, abdominal pelvic aorta. Focal dilation of the aorta just below the level of the superior mesenteric artery measures 3.8 cm, (series 401, image 61). Additional focal infrarenal aortic dilation measures 3.8 cm, (series 401, image 70) No abdominopelvic lymph nodes are noted to be pathologically enlarged by CT measurement criteria. The bowel is within normal limits without abnormal bowel wall thickness or bowel dilation. Diverticular disease without findings to suggest diverticulitis. No free air. No free abdominopelvic fluid collections. The appendix is not identified. Enlarged cystic type structure is identified at the level of the LEFT adnexa measuring up to 6.5 cm. The osseous structures reveal degenerative change. IMPRESSION: 1. No specific acute intra-abdominal findings are noted to suggest etiology of the patient's abdominal pain. 2. Multilobulated and densely calcified abdominal aortic aneurysm measuring up to 3.8 cm. Best practice guidelines recommend follow-up evaluation every two years. 3. Trace LEFT pleural effusion and subsegmental atelectasis versus consolidation. 4. 6.5 cm adnexal cyst. Best practice guidelines recommend prompt follow-up sonography. 5. Diverticular disease without findings to suggest diverticulitis. Hip xray: COMPARISON: Hip Right 2 View dated 07/30/2019 FINDINGS: Mild osteoarthritic changes involve the right hip. No fracture, dislocation or AVN. Surgical clips are present in right groin. Knee xray: FINDINGS: No fracture or dislocation is seen. Osteoporosis. Marked osteoarthritis lateral compartment consisting joint space narrowing and osteophytes. Medical Problem List: Toxic encephalopathy related to recurrent UTI, wound culture positive for enterococcus Status post fall with history of falls Alzheimer's dementia, moderate to severe Depression with anxiety Chronic diastolic CHF Atrial fibrillation on chronic anti coagulation therapy COPD Hypothyroidism Abdominal aortic aneurysm measuring 3.8 cm DM Type 2 Brief History of Present Illness: 74-year-old female with moderate to severe dementia presented to emergency room with altered mental status and fall. Patient was admitted for further evaluation. Hospital Course: Patient presented with altered mental status and mechanical fall. Patient was evaluated. CT scan did not reveal any fracture. Patient found to have UTI. Patient was started on IV antibiotic therapy. Patient with history of recurrent UTI. Urine culture positive for enterococcus. Patient has done well during the course of her stay. At discharge she will continue with Levaquin 500 mg once daily for 7 days. Recommend to recheck urinalysis after that time to monitor resolution. Recommend UTI prevention at the care home. As mentioned above patient had a fall. Patient with history of falls. CT scan did not reveal any fracture. X-ray of the pelvis hip and knee also did not reveal any fracture. Patient continue with physical therapy. At discharge, fall precautions in place. Patient will return to the care home. Patient with moderate to severe Alzheimer's dementia with depression and anxiety. This has remained stable. At discharge she will continue with her current medications of Depakote ER 375 mg 1 pill 3 times a day, Cymbalta 60 mg daily, Remeron 30 mg at bedtime. Further adjustment in medication can be done by care home physician. Patient with CHF, atrial fibrillation on chronic anti coagulation therapy and hyperlipidemia. This has remained stable. At discharge continue with her medications including Eliquis 5 mg 1 pill twice daily, digoxin 125 mcg daily, Lipitor 20 mg daily, Lasix 40 mg daily, isosorbide mononitrate 30 mg daily. Patient with history of COPD. At discharge she will continue with Brovana 1 unit dose twice daily. Patient with history of anemia of chronic disease with history of iron and B12 deficiency. This has remained stable. At discharge she will continue with iron supplementation 325 mg twice daily, folic acid 1 mg daily, and vitamin-B 12 1 pill daily. Recommend to recheck lab in 2-4 weeks to monitor her progress. Patient with hypothyroidism. At discharge she will continue with levothyroxine 200 mcg daily. Patient with diabetes mellitus type 2. Blood sugars have been well controlled. Previous A1c 7.4. Will recommend at discharge to discontinue insulin as this may increase risk of hypoglycemia. Will also recommend to decrease metformin to 500 mg daily. Will recommend care home to check A1c to further determine on further adjustment in medication. Hypoglycemia will need to be monitored closely. Further adjustment can be done by her care home physician. Advanced directives address in detail. Patient is DNR. Patient has out-of- hospital DNR. Vital Signs/Physical Exam: Temp Pulse Resp BP Pulse Ox 97.2 F 72 15 117/62 93 10/26/19 08:00 10/26/19 09:05 10/26/19 09:47 10/26/19 09:05 10/26/19 09:47 General: Alert, In no apparent distress, Demented HEENT: Atraumatic Neck: Supple Respiratory: Clear to auscultation bilaterally, Normal air movement Cardiovascular: Normal pulses, Regular rate/rhythm Gastrointestinal: Normal bowel sounds, Soft and benign, Non-distended, No tenderness, No masses, No rebound, No guarding Musculoskeletal: No erythema, No tenderness, No warmth Integumentary: No cyanosis Neurological: Normal speech, Normal strength at 5/5 x4 extr, Normal tone, Dementia Laboratory Data at Discharge: WBC 6.8 K/uL (4.3-10.9) 10/26/19 04:07 Hgb 9.6 g/dL (12.0-15.0) L 10/26/19 04:07 Hct 29.1 % (36.0-45.0) L 10/26/19 04:07 Plt Count 161 K/uL (152-406) 10/26/19 04:07 PT 14.4 SECONDS (9.5-12.5) H 10/24/19 06:00 INR 1.23 10/24/19 06:00 APTT 32.2 SECONDS (24.3-36.9) 10/24/19 06:00 Sodium 141 mmol/L (136-145) 10/26/19 04:07 Potassium 3.3 mmol/L (3.5-5.1) L 10/26/19 04:07 BUN 12 mg/dL (7-18) 10/26/19 04:07 Creatinine 0.71 mg/dL (0.55-1.3) 10/26/19 04:07 Glucose 106 mg/dL (74-106) 10/26/19 04:07 Magnesium 1.7 mg/dL (1.8-2.4) L 10/26/19 04:07 Total Bilirubin 0.3 mg/dL (0.2-1.0) 10/24/19 06:00 AST 17 U/L (15-37) 10/24/19 06:00 ALT 12 U/L (12-78) 10/24/19 06:00 Alkaline Phosphatase 74 U/L (45-117) 10/24/19 06:00 Troponin I < 0.02 ng/mL (0.0-0.045) 10/26/19 04:07 Lipase 24 U/L (73-393) L 10/23/19 21:30 Home Medications: Acetaminophen [Tylenol] 650 mg PO Q6HP PRN 07/30/19 Apixaban [Eliquis] 5 mg PO BID 07/30/19 Atorvastatin Calcium [Lipitor*] 20 mg PO BEDTIME 07/30/19 Digoxin [Lanoxin*] 125 mcg PO DAILY 07/30/19 Divalproex ER [Depakote *ER] 375 mg PO TID 07/30/19 Duloxetine HCl [Cymbalta] 60 mg PO DAILY 07/30/19 Furosemide [Lasix*] 40 mg PO DAILY 07/30/19 Gabapentin [Neurontin*] 100 mg PO BID 07/30/19 Isosorbide Dinitrate 30 mg PO DAILY 07/30/19 Levothyroxine Sodium 200 mcg PO DAILY 07/30/19 Arformoterol Tartrate [Brovana] 15 mcg NEB BIDRESP vial.neb 08/04/19 Mirtazapine [Remeron] 1 tab PO BEDTIME 10/24/19 Cyanocobalamin (Vitamin B-12) [Vitamin B-12] 1,000 mcg PO DAILY #90 tablet 10/26 Ferrous Sulfate [Iron] 325 mg PO BID #60 tablet 10/26/19 Folic Acid 1 mg PO DAILY #90 tablet 10/26/19 Levofloxacin [Levaquin] 500 mg PO DAILY #7 tablet 10/26/19 Metformin HCl [Glucophage*] 500 mg PO DAILY #30 tab 10/26/19 New Medications: Cyanocobalamin (Vitamin B-12) [Vitamin B-12] 1,000 mcg PO DAILY #90 tablet Ferrous Sulfate [Iron] 325 mg PO BID #60 tablet Folic Acid 1 mg PO DAILY #90 tablet Levofloxacin [Levaquin] 500 mg PO DAILY #7 tablet Metformin HCl [Glucophage*] 500 mg PO DAILY #30 tab Patient Discharge Instructions: 1. Patient to return to care home. 2. Patient presented with altered mental status and mechanical fall. Patient was evaluated. CT scan did not reveal any fracture. Patient found to have UTI. Patient was started on IV antibiotic therapy. Patient with history of recurrent UTI. Urine culture positive for enterococcus. Patient has done well during the course of her stay. At discharge she will continue with Levaquin 500 mg once daily for 7 days. Recommend to recheck urinalysis after that time to monitor resolution. Recommend UTI prevention at the care home. 3. As mentioned above patient had a fall. Patient with history of falls. CT scan did not reveal any fracture. X-ray of the pelvis hip and knee also did not reveal any fracture. Patient continue with physical therapy. At discharge, fall precautions in place. Patient will return to the care home. 4. Patient with moderate to severe Alzheimer's dementia with depression and anxiety. This has remained stable. At discharge she will continue with her current medications of Depakote ER 375 mg 1 pill 3 times a day, Cymbalta 60 mg daily, Remeron 30 mg at bedtime. Further adjustment in medication can be done by care home physician. 5. Patient with CHF, atrial fibrillation on chronic anti coagulation therapy and hyperlipidemia. This has remained stable. At discharge continue with her medications including Eliquis 5 mg 1 pill twice daily, digoxin 125 mcg daily, Lipitor 20 mg daily, Lasix 40 mg daily, isosorbide mononitrate 30 mg daily. 6. Patient with history of COPD. At discharge she will continue with Brovana 1 unit dose twice daily. 7. Patient with history of anemia of chronic disease with history of iron and B12 deficiency. This has remained stable. At discharge she will continue with iron supplementation 325 mg twice daily, folic acid 1 mg daily, and vitamin-B 12 1 pill daily. Recommend to recheck lab in 2-4 weeks to monitor her progress. 8. Patient with hypothyroidism. At discharge she will continue with levothyroxine 200 mcg daily. 9. Patient with diabetes mellitus type 2. Blood sugars have been well controlled. Previous A1c 7.4. Will recommend at discharge to discontinue insulin as this may increase risk of hypoglycemia. Will also recommend to decrease metformin to 500 mg daily. Will recommend care home to check A1c to further determine on further adjustment in medication. Hypoglycemia will need to be monitored closely. Further adjustment can be done by her care home physician. 10. Advanced directives address in detail. Patient is DNR. Patient has [id number] DNR. Diet: AHA Activity: Fall precautions Time spent managing pt's care (in minutes): 55
[2019-10-26 12:03] VITALS: BP 117/69; TEMP 97.5
== END 2019-10-26 13:48 ==
LOC: ER 20:23 → ERHOLD 23:17 → 4TH 10-24 08:16
PROVIDERS: ADMIT Hospitalist; ATTEND Family Medicine
DX: N39.0 Urinary tract infection, site not specified (principal); B95.2 Enterococcus as the cause of diseases classified elsewhere; G92 Toxic encephalopathy; G30.9 Alzheimer's disease, unspecified; F02.80 Dementia in other diseases classified elsewhere, unspecified severity, without behavioral disturbance, psychotic disturbance, mood disturbance, and anxiety; F41.8 Other specified anxiety disorders; I11.0 Hypertensive heart disease with heart failure; I50.32 Chronic diastolic (congestive) heart failure; I48.20 Chronic atrial fibrillation, unspecified; Z79.01 Long term (current) use of anticoagulants; J44.9 Chronic obstructive pulmonary disease, unspecified; E03.9 Hypothyroidism, unspecified; I71.4 Abdominal aortic aneurysm, without rupture; E11.9 Type 2 diabetes mellitus without complications; Z66 Do not resuscitate
CPT/HCPCS: 96365; 96361; 96368; 93005; 87040 ×2; 87088; 85025 ×4; 87086; 80048 ×3; 36415 ×2; 83735 ×4; 85610 ×2; 80162; 80076; 80164; 85730; 87077; 87186; 81003; 84484 ×4; 83690; 80053; 83880; 70450; 71250; 72125; 71045; 72170; 73502; 73560; 97116; 97161; 97530 ×4; 94640; 51702; 96375; 96372; 99285; J3411; J3486; J3475 ×3; J2270 ×5; J7605 ×5; J0696 ×3; G0378 ×5; J7030 ×4